=== PATIENT | male | born 1980 | race Two or more races ===

== ENCOUNTER 2017-10-10 00:17 | Emergency (ER) | payer MEDICAID ==
[~2017-10-10] VITALS: Ht 170.2 cm; Wt 81.6 kg
[2017-10-10 00:34] VITALS: BP 129/83
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
[2017-10-10] MEDS ORDERED: Ketorolac 60mg Inj IM ONE (00:45)
[2017-10-10] MEDS ORDERED: HYDROcodone/Acetamin 10/325 tab ORAL ONE (00:45)
[2017-10-10] MEDS ORDERED: ACETAMINOPHEN-1 EAC1 ORAL (01:47)
[2017-10-10] MEDS ORDERED: IBUPROFEN600 MG ORAL (01:47)
[2017-10-10] MEDS ORDERED: PREDNISONE20 MG ORAL (01:47)
[2017-10-10 01:55] VITALS: BP 124/85
[2017-10-10 02:00] VITALS: BP 124/85
== END 2017-10-10 02:00 | disposition home or self-care (01) ==
LOC: EDBD 00:17 → EMR 00:56
DX: M54.9 Dorsalgia, unspecified (principal)
CPT/HCPCS: 96372; 99284

== ENCOUNTER 2017-10-18 10:12 | Emergency (ER) | payer MEDICAID ==
[~2017-10-18] VITALS: Ht 170.2 cm; Wt 81.6 kg
[~2017-10-18 10:12] MED LIST: ACETAMINOPHEN-1 EAC1 ORAL; IBUPROFEN600 MG ORAL; PREDNISONE20 MG ORAL
[2017-10-18 10:24] VITALS: BP 136/76
[2017-10-18] MEDS ORDERED: Ketorolac 60mg Inj IM ONE (11:00)
--- NOTE | 2017-10-18 12:09 | Diagnostic Imaging Report ---
Indication: Pain Technique: 3 views of the lumbar spine Comparison: None Findings: Bony alignment is normal. Vertebral body heights are preserved. The disc spaces are preserved. No acute fractures. No dislocations. Pedicles are intact. Sacral arches are preserved Impression: Negative
--- NOTE | 2017-10-18 12:10 | Emergency Room Report ---
History of Present Illness General Chief Complaint: Lower Back Pain or Injury Source: Patient Present Illness HPI This patient states that he has had chronic back pain. He is followed by his primary care physician in addition to an orthopedist. He has undergone MRI of his back and is found to have multiple disc herniations. He states he has been using Advil, Tylenol and a muscle relaxant without relief. He has had hydrocodone but states he doesn't want to take it because its addictive. He denies new symptoms. He denies weakness. He denies tingling or numbness. He does have an appointment for physical therapy that starts next week. He has no other complaints. Allergies: Coded Allergies: No Known Allergies (Unverified , 10/10/17) Patient History Past Medical History: none, see triage record Past Surgical History: none Social History: Denies: smoking, alcohol use, drug use Reviewed Nursing Documentation: PMH: Agreed; PSxH: Agreed Nursing Documentation-PMH Past Medical History: No Stated History Review of Systems All Other Systems: negative except mentioned in HPI Physical Exam Vital Signs Date Time Temp Pulse Resp B/P (MAP) Pulse Ox O2 Delivery O2 Flow Rate FiO2 10/18/17 10:16 98.4 105 18 136/76 95 Room Air 98.4 Sp02 EP Interpretation: reviewed, normal General Appearance: no apparent distress, alert, GCS 15, non-toxic Head: normocephalic, atraumatic Eyes: bilateral eye normal inspection, bilateral eye PERRL ENT: hearing grossly normal, normal pharynx, no angioedema, normal voice Neck: normal inspection Respiratory: no respiratory distress, no retraction, no accessory muscle use, speaking full sentences Rectal: deferred Musculoskeletal: gait/station normal, normal range of motion Neurologic: alert, oriented x3, responsive, motor strength/tone normal, sensory intact, speech normal Psychiatric: judgement/insight normal, memory normal, mood/affect normal, no suicidal/homicidal ideation Skin: normal color, no rash, warm/dry, well hydrated Medical Decision Making Diagnostic Impression: Primary Impression: Low back pain ER Course This patient has a clinical presentation consistent with mechanical back pain/ chronic back pain. There are no red flags on physical exam. The patient has previously undergone MRI of the lumbar spine. The patient denies any concerning features such as trauma, fevers, night sweats, history of malignancy , pain worse at night, IV drug abuse, urinary/fecal incontinence or retention, focal weakness or change in sensation, or refractory pain. Given these pertinent negatives in the history and physical exam an emergent cause of the back pain such as epidural abscess, metastasis to bone, cauda equina syndrome, and fracture is less likely. I also doubt emergent cardiovascular cause of back pain such as aortic dissection a ruptured abdominal aortic aneurysm given patient with equal pulses in all 4 extremities with no diastolic murmur or pulsatile abdominal mass. The patient was counseled that, though unlikely, the possibility of an emergent cause of back pain may still be present and that the patient should return immediately if symptoms persist or worsen. The symptoms are reproducible with movement. Patient had a benign evaluation and neurologic examination. No emergency etiology was identified. Other X-Ray Diagnostic Results Other X-Ray Diagnostic Results : X-Ray ordered: L-spine # of Views/Limited Vs Complete: Complete Indication: Pain Interpretation: no dislocation, no soft tissue swelling, no fractures Impression: No acute disease Electronically Signed by: Craig Last Vital Signs Date Time Temp Pulse Resp B/P (MAP) Pulse Ox O2 Delivery O2 Flow Rate FiO2 10/18/17 12:04 98.4 10/18/17 10:24 18 136/76 95 Room Air 10/18/17 10:16 105 Disposition: HOME, SELF-CARE Condition: Stable Referrals: [facility]ERR[facility] (PCP) Patient Instructions: Low Back Sprain With Rehab-[facility] Lainey Hurtado DO Oct 18, 2017 12:10
[2017-10-18] MEDS ORDERED: LIDODERM700 M1 TOPIC (12:11)
[2017-10-18 12:26] VITALS: BP 132/77
== END 2017-10-18 12:26 | disposition home or self-care (01) ==
LOC: EMR 10:55
DX: M54.5 Low back pain (principal)
CPT/HCPCS: 72020; 96372; 99283

== ENCOUNTER 2018-03-23 21:10 | Emergency (ER) | payer MEDICAID ==
[~2018-03-23] VITALS: Ht 180.3 cm; Wt 74.8 kg
[~2018-03-23 21:10] MED LIST changes: +LIDODERM700 M1 TOPIC
[2018-03-23 21:24] VITALS: BP 128/85
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
[2018-03-23] MEDS ORDERED: PAXIL20 MG ORAL (21:29)
[2018-03-23] MEDS ORDERED: FLOMAX0.4 MG ORAL (21:29)
[2018-03-23] MEDS ORDERED: NUPLAZID34 MG PO (21:29)
[2018-03-23] MEDS ORDERED: ATORVASTATIN CA20 MG ORAL (21:29)
[2018-03-23] MEDS ORDERED: RISPERDAL1 MG PO (21:29)
[2018-03-23] MEDS ORDERED: NAMENDA5 MG ORAL (21:29)
[2018-03-23] MEDS ORDERED: FINASTERIDE1 MG PO (21:29)
[2018-03-23] MEDS ORDERED: ALLOPURINOL300 M1 ORAL (21:29)
[2018-03-23] MEDS ORDERED: TRAZODONE HCL100 MG ORAL (21:29)
[2018-03-23] MEDS ORDERED: DOCUSATE SODIU100 M2 ORAL (21:29)
[2018-03-23] MEDS ORDERED: DEPAKOTE250 MG PO (21:29)
[2018-03-23] MEDS ORDERED: Norco 5mg/325mg tab ORAL ONE (21:30)
--- NOTE | 2018-03-23 21:35 | NUR ---
ED Nurse Note: CT of Head done.
--- NOTE | 2018-03-23 22:04 | NUR ---
ED Nurse Note: Pain Meds given as ordered.
[2018-03-23 22:40] VITALS: BP 125/81
--- NOTE | 2018-03-24 15:52 | Diagnostic Imaging Report ---
EXAM: XR Chest, 1 View CLINICAL HISTORY: TRAUMA TECHNIQUE: Frontal view of the chest. COMPARISON: No relevant prior studies available. FINDINGS: Lungs: No consolidation. Pleural space: Unremarkable. No pneumothorax. Heart: Unremarkable. No cardiomegaly. Mediastinum: Unremarkable. Bones/joints: No acute fracture. IMPRESSION: No acute cardiopulmonary disease.
--- NOTE | 2018-03-24 15:52 | Diagnostic Imaging Report ---
EXAM: CT Head Without Intravenous Contrast CLINICAL HISTORY: TRAUMA TECHNIQUE: Axial computed tomography images of the head/brain without intravenous contrast. CTDI is 70.38 mGy and DLP is 1347 mGy-cm. One or more of the following dose reduction techniques were used: automated exposure control, adjustment of the mA and/or kV according to patient size, use of iterative reconstruction technique. COMPARISON: No relevant prior studies available. FINDINGS: Brain: No hemorrhage. No edema. Ventricles: No ventriculomegaly. Bones/joints: No acute fracture. Soft tissues: Unremarkable. Sinuses: No acute sinusitis. Mastoid air cells: No mastoid effusion. IMPRESSION: No acute intracranial process.
== END 2018-03-23 22:40 | disposition home or self-care (01) ==
LOC: EDBD 21:10 → EMR 21:31
DX: S09.90XA Unspecified injury of head, initial encounter (principal); S20.219A Contusion of unspecified front wall of thorax, initial encounter; W01.0XXA Fall on same level from slipping, tripping and stumbling without subsequent striking against object, initial encounter; Y92.9 Unspecified place or not applicable; M54.41 Lumbago with sciatica, right side; F10.920 Alcohol use, unspecified with intoxication, uncomplicated
CPT/HCPCS: 70450; 71045; 99284

== ENCOUNTER 2019-10-05 14:22 | Emergency (ER) | payer MEDICAID ==
[~2019-10-05] VITALS: Ht 170.2 cm; Wt 81.6 kg
[~2019-10-05 14:22] MED LIST changes: +ALLOPURINOL300 M1 ORAL; +ATORVASTATIN CA20 MG ORAL; +DEPAKOTE250 MG PO; +DOCUSATE SODIU100 M2 ORAL; +FINASTERIDE1 MG PO; +FLOMAX0.4 MG ORAL; +NAMENDA5 MG ORAL; +NUPLAZID34 MG PO; +PAXIL20 MG ORAL; +RISPERDAL1 MG PO; +TRAZODONE HCL100 MG ORAL
[2019-10-05 14:50] VITALS: BP 126/81
[2019-10-05] MEDS ORDERED: Bacitracin Oint UD TOPIC ONE (15:00)
[2019-10-05] MEDS ORDERED: Lidocaine 1% MPF 10mg/ml 5ml IM ONE (15:00)
[2019-10-05] MEDS ORDERED: Tetanus/Diptheria/Pertussis IM ONE (15:00)
[2019-10-05] MEDS ORDERED: Tylenol #3 tab (300mg/30mg) ORAL ONE (15:00)
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
[2019-10-05] MEDS ORDERED: Lidocaine 2% 20mg/ml/EPI 0.01mg/ml 20ml INJ ONE (15:15)
[2019-10-05] MEDS ORDERED: TYLENOL EXTRA500 MG ORAL (16:17)
[2019-10-05] MEDS ORDERED: BACITRACIN15 GM TOPIC (16:17)
[2019-10-05] MEDS ORDERED: CEPHALEXIN500 MG ORAL (16:17)
[2019-10-05 16:20] VITALS: BP 121/82
[2019-10-05 16:32] VITALS: BP 126/81
== END 2019-10-05 16:25 | disposition home or self-care (01) ==
LOC: EMR 15:00
DX: S61.411A Laceration without foreign body of right hand, initial encounter (principal); Z23 Encounter for immunization; W26.8XXA Contact with other sharp object(s), not elsewhere classified, initial encounter; Y92.9 Unspecified place or not applicable; Z90.81 Acquired absence of spleen
CPT/HCPCS: 12042; 90471; 90715; Z7502; 99283

== ENCOUNTER 2019-10-11 20:38 | Emergency (ER) | payer MEDICAID ==
[~2019-10-11] VITALS: Ht 170.2 cm; Wt 81.6 kg
[~2019-10-11 20:38] MED LIST changes: +BACITRACIN15 GM TOPIC; +CEPHALEXIN500 MG ORAL; +TYLENOL EXTRA500 MG ORAL
[2019-10-11 21:00] VITALS: BP 140/90
--- NOTE | 2019-10-11 21:00 | NUR ---
ED Nurse Note: pt ambulated into ed from home for wound recheck and suture removal. Pt states he has total of 15 stitches on right hand x 7 days ago. Pt states that wound was sutured at [facility] [place] 7 days ago. Pt aao x 4, ambulates with steady gait. Pt states that he has consumed ETOH this evening because he "thought it would help him sleep." pt states that a friend drove him to the ED. ERMD at bedside. Awaiting further orders.
--- NOTE | 2019-10-11 21:10 | NUR ---
ED Nurse Note: pt hand wrapped in lisbeth bandage and splint applied per ERMD. Awaiting further orders.
[2019-10-11] MEDS ORDERED: HYDROcodone/Acetamin 5/325 tab ORAL ONE (21:15)
[2019-10-11] MEDS ORDERED: BACTRIM DS TAB1 EAC1 ORAL (21:16)
[2019-10-11] MEDS ORDERED: NAPROXEN500 M1 ORAL (21:16)
[2019-10-11] MEDS ORDERED: NORCO 5-325 TA1 EAC1 ORAL (21:16)
[2019-10-11] MEDS ORDERED: CLINDAMYCIN HC300 MG ORAL (21:16)
--- NOTE | 2019-10-11 21:20 | NUR ---
ED Nurse Note: all medications administered, pt tolerated well no ss of distress noted. will continue to monitor.
--- NOTE | 2019-10-11 21:25 | Emergency Room Report ---
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 Patient states that on October 05, 2019 he initially received 15 stitches for his hand laceration. He has been compliant with his Keflex. Denies fever, chills, nausea, vomiting, swelling, hand pain, numbness, or paresthesia. Tdap was updated during the last visit. 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 He told the nurse he has still been lifting and doing heavy work at his job. The patient's symptoms were gradual onset, severity was moderate, duration since 6 days. Quality: aching Severity: mild Past medical history: anxiety Past surgical history: denies Smoking: Denies Alcohol use: Denies Drug use: Denies Review of systems: CONST: No fevers or chills, No night sweats PULMONARY: No productive cough, No shortness of breath CARDIAC: No chest pain, No palpitations GI: No vomiting, No diarrhea , No melena_or_BRBPR : No dysuria, No hematuria, No discharge NEURO: No new_focal_weakness_or_numbness, No confusion, No vision changes 14 point Review of Systems is otherwise negative except per HPI Physical Exam: GENERAL: Awake_alert_ nontoxic, no acute distress Spo2 97% on RA -normal EYES: Extraocular muscles are intact. Conjunctivae clear. Lids without swelling ENT: External nose and ear normal_in_appearance. Oropharynx clear. Head_ atraumatic, Moist_oral_mucosa NECK: No JVD. No meningismus. No thyromegaly. Supple. Trachea midline RESP: Normal respiratory effort. Symmetric rise. No stridor. Clear_to_ auscultation_No_rales_No_wheezes CARDIAC: Mild low grade tachcyardia. and regular rhythm on_auscultation No_ significant pedal edema. ABDOMEN: Soft. Nondistended. Nontender_No_rebound_or_guarding. MSK: Normal muscle tone, without rigidity. Extremities without asymmetric deformity or swelling. SKIN: Warm and dry. No visible cyanosis or pallor Upper extremity exam: R hand Sutures x15 visualized. No cellulitis. No surrounding edema. Full range of motion of digits 1 through 5 in flexion and extension at MCP PIP and DIP. Negative kanavals signs. Elbow: No swelling / effusion appreciated, no significant pain with passive range of motion Wrist: No swelling / effusion appreciated, no significant pain with passive range of motion Lateral epicondyle: no tenderness / swelling / ecchymoses Medial epicondyle: no tenderness / swelling / ecchymoses Radial pulse: 2+ Capillary refill: <3 seconds in all fingers All fingers: full range of motion without any tenderness / swelling / deformity / evidence of infection Scaphoid: no tenderness / swelling / ecchymoses, no pain with axial loading of the thumb Radian / Median / Ulnar nerves: all intact (finger opposition, finger adduction / abduction, thumb dorsiflexion) Sensation intact to light touch: in all fingers Strength 5/5 with: wrist dorsi / volar flexion, hand cutter and paster press clippings, elbow flexion / extension NEUROLOGIC: Alert, oriented x3. Motor_and_sensation_grossly_intact. No truncal ataxia. Gait_normal Psych: Normal mood and affect, normal judgment and insight - COORDINATION OF CARE Case was discussed with: Patient Previous ER record reviewed. Medical Decision Making/Plan: Lxioc-gmkv-kxufpzak male presenting for wound check status post right hand laceration repair on October 05, 2019. States he has been compliant with abx. No signs of FTS. No Kanavels sign. No fusiform swelling. No cellulitis or signs of infection. Neuro intact RUE. Intact ROM at MCP PIP DIP joints of R hand. Doubt tendon laceration. Pt found to have low grade tachycardia but is Otherwise is afebrile. States he has mild anxiety associated with getting the stitches removed. He is anxious to get back to work because he needs to make money. 3 sutures were removed, however, this caused a small wound dehiscence that was placed back together successfully with steristrips. Shared medical decision making was performed. Due to dehiscence, will place steristrips to keep wound together for 2 more days pending wound check. Pt educated that the wound still requires 4-5 more days of healing due to the depth of the wound. He was told to stop working with his R hand because it will further delay wound healing. Arm was supported with steristrips, clement bandage and volar splint. Pt educated to be NWB to RUE as this may cause further wound dehiscence/slow down wound healing. Tachycardia resolved after pain control with norco. Will give abx clinda and bactrim as patient is out of keflex. Rx norco and naproxen for pain . Pt advised not to drive or operate heavy machinery while taking norco. Recommend wound check in 2 days. Strict return ER precautions discussed for any new persistent or worsening symptoms Allergies: Coded Allergies: No Known Allergies (Unverified , 06/23/18) COVID-19 Screening Contact w/high risk pt: No Experienced COVID-19 symptoms?: No COVID-19 Testing performed STUNT DOUBLE: No Nursing Documentation-PMH Hx Cardiac Problems: No - sciatica Physical Exam Vital Signs Date Time Temp Pulse Resp B/P (MAP) Pulse Ox O2 Delivery O2 Flow Rate FiO2 10/11/19 20:54 98.1 101 18 140/90 (107) 97 Room Air Sp02 EP Interpretation: reviewed, normal Procedures Splinting Progress Right upper extremity right wrist splint: splint applied to R Wrist Splint applied by tech with direct supervision by me. Reassessed following splint application. Neurovascular intact. Compartments remain soft and compressible. Pt tolerated well without complications. Splint care instructions were discussed. Procedure: R wrist Clement wrap: Clement wrap applied to R wrist Applied by tech with direct supervision by me. Reassessed extremity following splint application. Neurovascular intact pre and post procedure. Follow-up recommended within 1-2 days for wound check Medical Decision Making Diagnostic Impression: Primary Impression: Suture check Additional Impressions: Laceration of hand Encounter for wound re-check Last Vital Signs Date Time Temp Pulse Resp B/P (MAP) Pulse Ox O2 Delivery O2 Flow Rate FiO2 10/11/19 20:54 98.1 101 18 140/90 (107) 97 Room Air Disposition: HOME, SELF-CARE Admit Decision Time: 21:12 Condition: Stable Scripts Naproxen* (NAPROXEN*) 500 Mg Tablet.dr 500 MG ORAL TWICE A DAY for 7 Days, #14 TAB Prov: Fabienne Mills D.O. 10/11/19 Trimethoprim/Sulfamethoxazole 160/800* (BACTRIM DS TABLET*) 1 Each Tablet 1 TAB ORAL Q12H for 7 Days, #14 TAB 0 Refills Prov: Fabienne Mills D.O. 10/11/19 Clindamycin Hcl (CLINDAMYCIN HCL) 300 Mg Capsule 300 MG ORAL THREE TIMES A DAY for 7 Days, #21 CAP Prov: Fabienne Mills D.O. 10/11/19 Hydrocodone Bit/Acetaminophen 5-325* (NORCO 5-325 TABLET*) 1 Each Tablet 1 TAB ORAL Q6H PRN for FOR PAIN, #12 TAB 0 Refills Prov: Fabienne Mills D.O. 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 Sutures still need 4- 5 more days for full wound healing. They will need to but re-evaluated at that time to see if they can come out. Do not drive or operate heavy machinery while taking norco. Follow-up JIM[facility] if you notice any hand swelling, drainage, discharge, difficulty moving your hand or have any fever. Follow-up with your doctor sooner if your condition requires a more timely clinical reevaluation. Return to the emergency department immediately if you feel that your condition is worsening or if you have any new or concerning symptoms. Review your discharge instructions and take any prescriptions given as instructed. Fabienne Mills D.O. Oct 11, 2019 21:25
[2019-10-11 21:40] VITALS: BP 142/85
[2019-10-11 21:42] VITALS: BP 142/85
--- NOTE | 2019-10-11 21:42 | NUR ---
ER DISCHARGE NOTE: Patient is cleared to be discharged home with friend per DI, pt is aox4, 96% on room air, with stable vital signs. pt was given dc and prescription instructions, pt was able to verbalize understanding, pt id band removed. pt is able to ambulate with steady gait. pt took all belongings. pt verbalized understanding of discharge instructions and importance of wound hygiene. Pt aao x 4, ambulates with steady gait. VSS. no ss of distress noted.
== END 2019-10-11 21:42 | disposition home or self-care (01) ==
LOC: EMR 21:06
DX: S61.411A Laceration without foreign body of right hand, initial encounter (principal); T81.30XA Disruption of wound, unspecified, initial encounter; X58.XXXA Exposure to other specified factors, initial encounter; Y92.9 Unspecified place or not applicable; F41.9 Anxiety disorder, unspecified; R00.0 Tachycardia, unspecified
CPT/HCPCS: 29125; Z7502; 99283

== ENCOUNTER 2019-10-19 19:34 | Emergency (ER) | payer MEDICAID ==
[~2019-10-19] VITALS: Ht 170.2 cm; Wt 81.6 kg
[~2019-10-19 19:34] MED LIST changes: +BACTRIM DS TAB1 EAC1 ORAL; +CLINDAMYCIN HC300 MG ORAL; +NAPROXEN500 M1 ORAL; +NORCO 5-325 TA1 EAC1 ORAL
[2019-10-19 19:41] VITALS: BP 132/87
--- NOTE | 2019-10-19 19:41 | NUR ---
ED Nurse Note: Patient walked in to ED for suture removal. Pt states he had sutures placed 2 weeks ago on his R wrist, denies fevers or chills. has finished all of abx. No SOB. VSS.
[2019-10-19] MEDS ORDERED: Bacitracin Oint UD TOPIC ONE ×2 (19:49→20:00)
--- NOTE | 2019-10-19 19:52 | Emergency Room Report ---
History of Present Illness General Chief Complaint: Wound Recheck/Suture Removal Present Illness HPI 39-year-old male with no symptom hospital history here requesting suture removal. Sutures were placed in [facility] about 2 weeks ago. Patient came a week later for wound check and 5 out of 15 sutures were removed however patient started bleeding and was told to come back at a later time. Patient continues to take his oral antibiotics as well as applying antibiotic ointment. Swelling has been minimized. No signs of infection noted at this time. Patient has full range of motion of the hand, denies any tingling numbness. Neurovascularly intact. Has full strength. Allergies: Coded Allergies: No Known Allergies (Unverified , 06/23/18) COVID-19 Screening Contact w/high risk pt: No Experienced COVID-19 symptoms?: No COVID-19 Testing performed SPECIALTY FOODS COOK: No Patient History Past Medical History: see triage record Past Surgical History: none Pertinent Family History: none Immunizations: UTD Reviewed Nursing Documentation: PMH: Agreed; PSxH: Agreed Nursing Documentation-PMH Hx Cardiac Problems: No - sciatica Review of Systems All Other Systems: negative except mentioned in HPI Physical Exam Vital Signs Date Time Temp Pulse Resp B/P (MAP) Pulse Ox O2 Delivery O2 Flow Rate FiO2 10/19/19 19:37 98.6 85 18 132/87 (102) 99 Room Air Sp02 EP Interpretation: reviewed, normal General Appearance: well appearing, no apparent distress Head: normocephalic, atraumatic ENT: hearing grossly normal, normal voice Neck: full range of motion, supple Respiratory: chest non-tender, lungs clear, no rhonchi Cardiovascular #1: no edema, no murmur Cardiovascular #2: 2+ radial (R), 2+ radial (L) Gastrointestinal: soft Genitourinary: no CVA tenderness Musculoskeletal: other - Healed laceration without pus drainage dorsum of right hand Neurologic: alert Psychiatric: mood/affect normal Skin: laceration - Healed laceration dorsum of right hand with 10 sutures present intact Lymphatic: no adenopathy Medical Decision Making PA Attestation All diagnoses and treatment plans were reviewed and discussed with my supervising physician Dr. Bloom Diagnostic Impression: Primary Impression: Encounter for removal of sutures ER Course 39-year-old male with no symptom hospital history here requesting suture removal. Sutures were placed in [facility] about 2 weeks ago. Patient came a week later for wound check and 5 out of 15 sutures were removed however patient started bleeding and was told to come back at a later time. Patient continues to take his oral antibiotics as well as applying antibiotic ointment. Swelling has been minimized. No signs of infection noted at this time. Patient has full range of motion of the hand, denies any tingling numbness. Neurovascularly intact. Has full strength. Ddx considered but are not limited to : Superficial laceration, deep laceration , tendon involvement with laceration, laceration with foreign body Vital signs: are WNL, pt. is afebrile H&PE are most consistent with: Suture removal ORDERS: None patient reports that still has antibiotic ointment at home, bacitracin ED INTERVENTIONS: 10 sutures were removed successfully without any bleeding or pus drainage, will clean and dressed DISCHARGE: At this time pt. is stable for d/c to home. Will provide printed patient care instructions, and any necessary prescriptions. Care plan and follow up instructions have been discussed with the patient prior to discharge. Last Vital Signs Date Time Temp Pulse Resp B/P (MAP) Pulse Ox O2 Delivery O2 Flow Rate FiO2 10/19/19 19:41 98.6 85 18 132/87 99 Room Air Disposition: HOME, SELF-CARE Condition: Stable Patient Instructions: Suture Removal, Care After Mukesh Dooley Oct 19, 2019 19:52
[2019-10-19 19:55] VITALS: BP 133/82
--- NOTE | 2019-10-19 19:55 | NUR ---
ED Nurse Note: Pt cleared by ERPA for discharge. DC instructions was given and explained to pt and verbalized understanding of teachings. All medical deviecs such as ID band removed. Pt is AAO x4, ambulatory and left with all personal belongings.
== END 2019-10-19 19:55 | disposition home or self-care (01) ==
LOC: EMR 19:49
DX: Z48.02 Encounter for removal of sutures (principal)
CPT/HCPCS: 99282

== ENCOUNTER 2020-03-24 01:43 | Emergency (ER) | payer MEDICAID ==
[~2020-03-24] VITALS: Ht 170.2 cm; Wt 81.6 kg
--- NOTE | 2020-03-24 01:56 | NUR ---
ED Nurse Note:Pt walked in from home. Pt is axox4, Vitals are stable on RA, ambulates with a steady gait. pt states that he has been co of n/v/d and abdominal pain since tuesday 03/21. States that his last covid test was negaitve 2 weeks ago. He is tense and restless on assement. He is febrile of 100.7 degrees f
[2020-03-24] MEDS ORDERED: HYDROmorphone 1mg/ml Carpuject IVP ONE ×2 (02:00→02:45)
--- NOTE | 2020-03-24 02:00 | Emergency Room Report ---
History of Present Illness General Chief Complaint: Vomiting Source: Patient, Medical Record Present Illness HPI This is a 40-year-old male with a history of high blood pressure but not currently on medication. He presents with chief complaint abdominal pain and nausea and vomiting. Onset for last 2 to 3 days. Vomiting is nonbloody nonbilious. No diarrhea. No fever or chills. Pain is diffuse in nature. 9 out of 10. Worse with movement. Worse with palpation. Never had this problem before. Said that he was not drinking heavily this weekend. 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 COVID-19 Screening: Negative COVID-19 COVID-19 Testing Source: outside source Patient History Past Medical History: see triage record, old chart reviewed, HTN Past Surgical History: none Pertinent Family History: none Social History: Reports: alcohol use - History of heavy use Immunizations: other Reviewed Nursing Documentation: PMH: Agreed; PSxH: Agreed Nursing Documentation-PMH Hx Cardiac Problems: No - sciatica Review of Systems Eye: Denies: eye pain, blurred vision ENT: Denies: ear pain, nose congestion, throat swelling Respiratory: Denies: cough, shortness of breath Cardiovascular: Denies: chest pain, palpitations Gastrointestinal: Reports: abdominal pain, nausea, vomiting; Denies: diarrhea Musculoskeletal: Denies: back pain, joint pain Skin: Denies: rash Neurological: Denies: headache, numbness Endocrine: Denies: increased thirst, increased urine Hematologic/Lymphatic: Denies: easy bruising All Other Systems: negative except mentioned in HPI Physical Exam Vital Signs Date Time Temp Pulse Resp B/P (MAP) Pulse Ox O2 Delivery O2 Flow Rate FiO2 03/24/20 01:47 100.8 111 18 126/65 (85) 98 Room Air Vitals with fever and tachycardia Sp02 EP Interpretation: reviewed, normal General Appearance: well appearing, no apparent distress, alert Head: normocephalic, atraumatic Eyes: bilateral eye PERRL, bilateral eye EOMI ENT: hearing grossly normal, normal pharynx Neck: full range of motion, supple, no meningismus Respiratory: chest non-tender, lungs clear, normal breath sounds Cardiovascular #1: regular rate, rhythm, no murmur Gastrointestinal: normal bowel sounds, no mass, no organomegaly, no bruit, non- distended, tenderness - Diffuse Musculoskeletal: back normal, normal range of motion, gait/station normal Psychiatric: mood/affect normal Medical Decision Making Diagnostic Impression: Primary Impression: Perforated duodenal ulcer Additional Impressions: Pancreatitis, alcoholic, acute Qualified Codes: K85.20 - Alcohol induced acute pancreatitis without necrosis or infection Hypokalemia Alcohol abuse ER Course This patient presents with abdominal pain and labs show acute pancreatitis. CT scan showed perforated duodenal ulcer and pancreatitis. Patient pain is resolved now. Potassium is also low. I discussed this with him and said that he would need surgery evaluation and probable surgery. He said that he has his father in the car in the parking lot. He said he needs to take his father home and will come back. I explained to him that he will do this he has to sign out AGAINST MEDICAL ADVICE. Explained to him that any delay in care especially surgical consultation, can lead to increased morbidity and mortality. He can from this. Patient expressed understanding. He is competent to sign out AGAINST MEDICAL ADVICE. CT/MRI/US Diagnostic Results CT/MRI/US Diagnostic Results : Imaging Test Ordered: CT abdomen pelvis Impression Read by radiologist. No appendicitis. Perforated duodenum with free air throughout the right abdomen and pelvis. Fatty liver. Calcification throughout the pancreas with atrophy consistent with sequelae of previous pancreatitis. Last Vital Signs Date Time Temp Pulse Resp B/P (MAP) Pulse Ox O2 Delivery O2 Flow Rate FiO2 03/24/20 01:47 100.8 111 18 126/65 (85) 98 Room Air Status: improved Disposition: AGAINST MEDICAL ADVICE Condition: Stable Rodolfo Singh MD Mar 24, 2020 02:00
--- NOTE | 2020-03-24 02:05 | NUR ---
ED Nurse Note: ERMD at bedside
[2020-03-24 02:10] VITALS: BP 126/65
--- NOTE | 2020-03-24 02:10 | NUR ---
ED Nurse Note: all blood work obtained, covid 19 swab obtained sent to lab. all medications administered, pt tolerated well no ss of distress noted. will continue to monitor.
[2020-03-24 02:31] LABS: HEMATOCRIT 51.4 % (42.0-52.0); HEMOGLOBIN 17.8 G/DL (14.2-18.0); MEAN CORPUSCULAR VOLUME 99 FL (80-99); PLATELET COUNT 424 K/UL (150-450); RED BLOOD COUNT 5.18 M/UL (4.70-6.10); RED CELL DISTRIBUTION WIDTH 12.2 % (11.6-14.8)
[2020-03-24 02:39] LABS: WHITE BLOOD COUNT 24.7 K/UL (4.8-10.8)
--- NOTE | 2020-03-24 02:43 | NUR ---
ED Nurse Note: pt returned from CT in stable condition. Pt states he cannot provide a UA at this time. will reassess.
--- NOTE | 2020-03-24 02:45 | NUR ---
ED Nurse Note: all medications administered, pt tolerated well no ss of distress noted. will continue to monitor.
[2020-03-24 02:48] LABS: ALBUMIN 3.5 G/DL (3.4-5.0); BILIRUBIN,TOTAL 1.2 MG/DL (0.2-1.0); CALCIUM 7.9 MG/DL (8.5-10.1); CREATININE 1.8 MG/DL (0.55-1.30)
[2020-03-24 02:53] LABS: POTASSIUM 2.7 MMOL/L (3.5-5.1)
[2020-03-24 02:56] LABS: BILIRUBIN,DIRECT 0.5 MG/DL (0.0-0.3)
--- NOTE | 2020-03-24 03:30 | NUR ---
ED Nurse Note: UA obtained and sent to lab
[2020-03-24 03:40] LABS: APPEARANCE,URINE CLEAR; BILIRUBIN, URINE 1+ (NEGATIVE); COLOR,URINE YELLOW; GLUCOSE, URINE (UA) 1+ (NEGATIVE); KETONES,URINE 1+ (NEGATIVE); LEUKOCYTE ESTERASE ,URINE 1+ (NEGATIVE); NITRITE,URINE NEGATIVE (NEGATIVE); PH,URINE 7 (4.5-8.0); PROTEIN,URINE 3+ (NEGATIVE); UROBILINOGEN,URINE 1 MG/DL (0.0-1.0)
--- NOTE | 2020-03-24 03:42 | Diagnostic Imaging Report ---
EXAM: CT Abdomen and Pelvis Without Intravenous Contrast CLINICAL HISTORY: ABD PAIN TECHNIQUE: Axial computed tomography images of the abdomen and pelvis without intravenous contrast. CTDI is 5.80 mGy and DLP is 326.10 mGy-cm. One or more of the following dose reduction techniques were used: automated exposure control, adjustment of the mA and/or kV according to patient size, use of iterative reconstruction technique. COMPARISON: No relevant prior studies available. FINDINGS: Lung bases: Atelectasis at the lung bases. Mild hiatal hernia. ABDOMEN: Liver: Hepatic steatosis. Gallbladder and bile ducts: Unremarkable. No calcified stones. No ductal dilation. Pancreas: Calcifications throughout the pancreas with atrophy, consistent with sequelae of previous pancreatitis. No ductal dilation. Spleen: Unremarkable. No splenomegaly. Adrenals: Unremarkable. No mass. Kidneys and ureters: Unremarkable. No obstructing stones. No hydronephrosis. Stomach and bowel: Diverticulosis, without acute diverticulitis. No small bowel obstruction. PELVIS: Appendix: No findings to suggest acute appendicitis. Bladder: Circumferential wall thickening of the urinary bladder, correlate with urinalysis to exclude cystitis. No stones. Reproductive: Unremarkable as visualized. ABDOMEN and PELVIS: Intraperitoneal space: Perforated duodenum consisting of numerous locules of free air adjacent to the duodenum with associated free fluid throughout the right abdomen and pelvis, including the region adjacent to the pancreatic head, right retroperitoneum, right paracolic gutter, and right pelvis. Evaluation is limited without intravenous/oral contrast. Note, there may be residual oral contrast in the colon from an old study. Bones/joints: No acute fracture. No dislocation. Soft tissues: Small fat-containing right inguinal hernia. Vasculature: Unremarkable. No abdominal aortic aneurysm. Lymph nodes: Unremarkable. No enlarged lymph nodes. IMPRESSION: 1. Perforated duodenum consisting of numerous locules of free air adjacent to the duodenum with associated free fluid throughout the right abdomen and pelvis, including the region adjacent to the pancreatic head, right retroperitoneum, right paracolic gutter, and right pelvis. Evaluation is limited without intravenous/oral contrast. Note, there may be residual oral contrast in the colon from an old study. Consider follow-up with water-soluble fluoroscopic evaluation. 2. Hepatic steatosis. 3. Calcifications throughout the pancreas with atrophy, consistent with sequelae of previous pancreatitis. 4. Circumferential wall thickening of the urinary bladder, correlate with urinalysis to exclude cystitis. <MYCVCSECTION> Communications: 03/24/20 03:47 Call Doctor Regarding Other, called Rodolfo Singh MD on 03/24 03:47 (-08:00)
--- NOTE | 2020-03-24 03:49 | NUR ---
ED Nurse Note: ERMD at bedside
[2020-03-24 03:54] VITALS: BP 139/73
--- NOTE | 2020-03-24 03:54 | NUR ---
AMA: pt aao x 4, ambulates with steady gait, VSS. Pt AMA and informed of risks and concerns per ERMD regarding leaving AMA. AMA form signed. IV line and ID band removed. Pt took all belongings. SEE AMA FORM.
== END 2020-03-24 03:54 | disposition left against medical advice (07) ==
LOC: EMR 02:00 → EDBEDREQ 04:00
DX: K26.5 Chronic or unspecified duodenal ulcer with perforation (principal); K85.20 Alcohol induced acute pancreatitis without necrosis or infection; E87.6 Hypokalemia; F10.10 Alcohol abuse, uncomplicated; Z53.29 Procedure and treatment not carried out because of patient's decision for other reasons
CPT/HCPCS: 36415; 74176; 80053; 81003; 82248; 83690; 85007; 85025; 87086; 96361; 96374; 96375; 96376; J1170; J2405; J7030; U0002; Z7502; 99284; J8499

== ENCOUNTER 2020-03-24 07:29 | Inpatient (IN) | payer MEDICAID ==
[~2020-03-24] VITALS: Ht 170.2 cm; Wt 81.6 kg
[2020-03-24] VITALS (21 sets, daily range): BP systolic 119–143; BP diastolic 66–89
[2020-03-24] MEDS ORDERED: Morphine Sulfate 4mg/ml Inj (IV USE ONLY) IVP ONE (08:00)
[2020-03-24] MEDS ORDERED: Piperacillin/Tazobactam 3.375 GM in NS 110 ML IVPB ONE (08:00)
[2020-03-24 08:17] LABS: HEMOGLOBIN 17.5 G/DL (14.2-18.0); MEAN CORPUSCULAR VOLUME 101 FL (80-99); PLATELET COUNT 413 K/UL (150-450); RED BLOOD COUNT 5.13 M/UL (4.70-6.10); RED CELL DISTRIBUTION WIDTH 13.4 % (11.6-14.8)
[2020-03-24 08:20] LABS: WHITE BLOOD COUNT 29.8 K/UL (4.8-10.8)
--- NOTE | 2020-03-24 08:31 | NUR ---
ED Nurse Note:pt. came from home with abdominal pain and nausea, pt. is ambulatory A/Ox4, skin is intact, VSS, blood and cultures sent to labs, given IV meds and fluids
[2020-03-24 08:44] LABS: ALBUMIN 3.1 G/DL (3.4-5.0); ALBUMIN/GLOBULIN RATIO 0.8 (1.0-2.7); BILIRUBIN,TOTAL 1.1 MG/DL (0.2-1.0); CALCIUM 7.7 MG/DL (8.5-10.1); POTASSIUM 2.8 MMOL/L (3.5-5.1)
[2020-03-24 08:54] LABS: BILIRUBIN,DIRECT 0.4 MG/DL (0.0-0.3); INR 1.2 (0.9-1.1)
--- NOTE | 2020-03-24 08:57 | Emergency Room Report ---
History of Present Illness General Chief Complaint: Abdominal Pain Source: Patient, Medical Record Present Illness HPI 40-year-old male presents for abdominal pain. Was seen here earlier last night. Had CT which showed perforated duodenal ulcer. Patient did leave AMA because he had to take care of his father. Patient returned because of the pain. 10 out of 10, dull, nonradiating. Denies fevers or chills. Denies chest pain or shortness of breath. No other aggravating relieving factors. Denies any other associated symptoms Allergies: Coded Allergies: No Known Allergies (Unverified , 06/23/18) COVID-19 Screening Contact w/high risk pt: No Experienced COVID-19 symptoms?: Yes COVID-19 Testing performed LOSS PREVENTION AND SAFETY MANAGER: No Patient History Past Surgical History: none Pertinent Family History: none Social History: Denies: smoking, alcohol use, drug use Immunizations: UTD Reviewed Nursing Documentation: PMH: Agreed; PSxH: Agreed Nursing Documentation-PMH Past Medical History: No History, Except For Hx Cardiac Problems: No - sciatica Hx Hypertension: No Hx Pacemaker: No Hx Asthma: No Hx COPD: No Hx Diabetes: No Hx Cancer: No Hx Gastrointestinal Problems: No Hx Dialysis: No History Of Psychiatric Problem: No Hx Neurological Problems: No Hx Cerebrovascular Accident: No Hx Seizures: No Review of Systems All Other Systems: negative except mentioned in HPI Physical Exam Vital Signs Date Time Temp Pulse Resp B/P (MAP) Pulse Ox O2 Delivery O2 Flow Rate FiO2 03/24/20 07:40 98.8 118 20 119/66 (83) 94 Room Air Sp02 EP Interpretation: reviewed, normal General Appearance: alert, GCS 15, non-toxic, mild distress Head: normocephalic, atraumatic Eyes: bilateral eye normal inspection, bilateral eye PERRL ENT: hearing grossly normal, normal pharynx, no angioedema, normal voice Neck: full range of motion, supple/symm/no masses Respiratory: chest non-tender, lungs clear, normal breath sounds, speaking full sentences Cardiovascular #1: regular rate, rhythm, no edema Cardiovascular #2: 2+ carotid (R), 2+ carotid (L), 2+ radial (R), 2+ radial (L), 2+ dorsalis pedis (R), 2+ dorsalis pedis (L) Gastrointestinal: normal bowel sounds, non tender, soft, non-distended, guarding Rectal: deferred Genitourinary: normal inspection, no CVA tenderness Musculoskeletal: back normal, normal range of motion, gait/station normal, non-tender Neurologic: alert, motor strength/tone normal, oriented x3, sensory intact, responsive, speech normal Psychiatric: judgement/insight normal, memory normal, mood/affect normal, no suicidal/homicidal ideation Reflexes: 3+ bicep (R), 3+ bicep (L), 3+ tricep (R), 3+ tricep (L), 3+ knee (R), 3+ knee (L) Skin: no rash Lymphatic: no adenopathy Procedures Critical Care Time Critical Care Time i. I feel this is a highly complex case requiring extensive working including EKG/Rhythm strip, Xray/CT/US, Blood/urine lab work, repeat exams while in ED, and administration of strong opiates/narcotics for pain control, admission to hospital or close patient follow up. Total time: 30 min bedside evaluation and treatment excludes procedures (EKG). Reason for critical care: Nominal pain, perforated duodenal ulcer Possible complications: hypotension, hypertension, GA, shock, arrhythmias, metabolic acidosis, end organ damage, respiratory failure. Interventions: Labs, IV fluids, antibiotics, review of prior chart and imaging. Discussion with surgeon Course: Patient presenting with abdominal pain. Seen earlier today with perforated ulcer. Left AMA. White count increased. Guarding. Surgeon consulted. Antibiotics given. NPO. Consultations: nursing staff, EMS, family Performed by: Dr Escobar Tolerated well condition = serious j. because of unstable vital signs this patient had a condition that could potentially threaten life or limb. I feel this is a critical patient who required my full attention while patient was considered critical. Total Critical Care Time excluding procedures was greater than 35 minutes Medical Decision Making Diagnostic Impression: Primary Impression: Perforated duodenal ulcer Additional Impression: Pancreatitis, alcoholic, acute Qualified Codes: K85.20 - Alcohol induced acute pancreatitis without necrosis or infection ER Course Hospital Course 40-year-old male presents with abdominal pain. Left AMA earlier today. Had perforated duodenal ulcer Clinical course Patient placed on stretcher. lunchroom monitor. After initial history and physical I ordered labs, IV fluids, UA, pain medication Labs - marked leukocytosis noted, Hb/Hct stable. BUN/Cr elevated, K 2.8, lipase > [address] Staton at bedside will take patient to the OR Admitted to Dr. Forbes service I feel this is a highly complex case requiring extensive working including EKG/Rhythm strip, Xray/CT/US, Blood/urine lab work, repeat exams while in ED, and administration of strong opiates/narcotics for pain control, admission to hospital or close patient follow up. Diagnosis -perforated duodenal ulcer, pancreatitis Patient taken to OR in serious condition Laboratory Tests Test 03/24/20 08:00 03/24/20 08:35 White Blood Count 29.8 K/UL (4.8-10.8) *H Red Blood Count 5.13 M/UL (4.70-6.10) Hemoglobin 17.5 G/DL (14.2-18.0) Hematocrit 52.0 % (42.0-52.0) Mean Corpuscular Volume 101 FL (80-99) H Mean Corpuscular Hemoglobin 34.0 PG (27.0-31.0) H Mean Corpuscular Hemoglobin Concent 33.6 G/DL (32.0-36.0) Red Cell Distribution Width 13.4 % (11.6-14.8) Platelet Count 413 K/UL (150-450) Mean Platelet Volume 6.7 FL (6.5-10.1) Neutrophils (%) (Auto) % (45.0-75.0) Lymphocytes (%) (Auto) % (20.0-45.0) Monocytes (%) (Auto) % (1.0-10.0) Eosinophils (%) (Auto) % (0.0-3.0) Basophils (%) (Auto) % (0.0-2.0) Neutrophils % (Manual) Pending Lymphocytes % (Manual) Pending Platelet Estimate Pending Platelet Morphology Pending Prothrombin Time 12.7 SEC (9.30-11.50) H Prothromb Time International Ratio 1.2 (0.9-1.1) H Activated Partial Thromboplast Time 26 SEC (23-33) Sodium Level 130 MMOL/L (136-145) L Potassium Level 2.8 MMOL/L (3.5-5.1) L Chloride Level 84 MMOL/L (98-107) L Carbon Dioxide Level 36 MMOL/L (21-32) H Anion Gap 9 mmol/L (5-15) Blood Urea Nitrogen 23 mg/dL (7-18) H Creatinine 2.0 MG/DL (0.55-1.30) H Estimat Glomerular Filtration Rate 36.8 mL/min (>60) Glucose Level 249 MG/DL (74-106) H Calcium Level 7.7 MG/DL (8.5-10.1) L Total Bilirubin 1.1 MG/DL (0.2-1.0) H Direct Bilirubin 0.4 MG/DL (0.0-0.3) H Aspartate Amino Transf (AST/SGOT) 32 U/L (15-37) Alanine Aminotransferase (ALT/SGPT) 26 U/L (12-78) Alkaline Phosphatase 94 U/L (46-116) Total Protein 6.8 G/DL (6.4-8.2) Albumin 3.1 G/DL (3.4-5.0) L Globulin 3.7 g/dL Albumin/Globulin Ratio 0.8 (1.0-2.7) L Lipase 900 U/L (73-393) H Lactic Acid Level Pending Last Vital Signs Date Time Temp Pulse Resp B/P (MAP) Pulse Ox O2 Delivery O2 Flow Rate FiO2 03/24/20 08:28 98.8 107 20 119/66 98 Room Air Status: improved Disposition: ADMITTED INPATIENT Condition: Serious Referrals: NON PHYSICIAN (PCP) David Escobar MD Mar 24, 2020 08:57
[2020-03-24] MEDS ORDERED: NeoSporin Gu Irrig 1ml Amp IRRIG ONE (10:03)
[2020-03-24] MEDS ORDERED: Bacitracin 50000 Units Vial ONE (10:03)
[2020-03-24] MEDS ORDERED: Rocuronium Bromide 50mg/5ml Inj IV ONE (10:03)
[2020-03-24] MEDS ORDERED: Succinylcholine 20mg/ml 10ml vial ONE (10:03)
--- NOTE | 2020-03-24 10:06 | NUR ---
ED Nurse Note:pre-op check list done, pt. was picked up by OR staff for surgery
[2020-03-24] MEDS ORDERED: fentaNYL 100 mcg/2 mL IV ONE (10:30)
[2020-03-24] MEDS ORDERED: Midazolam 2mg/2ml Inj ONE (10:30)
[2020-03-24] MEDS ORDERED: Lidocaine 1% MPF 10mg/ml 5ml ONE (10:39)
--- NOTE | 2020-03-24 10:42 | Pre-Procedure Note/Attestation ---
Pre-Procedure Note/Attestation Complete Prior to Procedure Planned Procedure: not applicable Procedure Narrative: exploratory laparotomy Indications for Procedure Pre-Operative Diagnosis: acute abdomen Attestation I attest that I discussed the nature of the procedure; its benefits; risks and complications; and alternatives (and the risks and benefits of such alternatives), prior to the procedure, with the patient (or the patient's legal insurance account representative). I attest that, if there was a reasonable possibility of needing a blood transfusion, the patient (or the patient's legal insurance account representative) was given the [facility] standardized written summary, pursuant to the Bob Amberg Blood Safety Act ([place] Health and Safety Code # 1645, as amended). I attest that I re-evaluated the patient just prior to the surgery and that there has been no change in the patient's H&P, except as documented below: Desiree Staton MD Mar 24, 2020 10:42
[2020-03-24] MEDS ORDERED: Neostigmine 1mg/ml 10ml Inj ONE (11:00)
[2020-03-24] MEDS ORDERED: Sterile Water Irrig 1000ml IRRIG ONE (11:00)
[2020-03-24] MEDS ORDERED: NS Irrig 3000ml IRRIG ONE (11:00)
[2020-03-24] MEDS ORDERED: LR 1000ml ONE (11:00)
[2020-03-24] MEDS ORDERED: Glycopyrrolate 0.2mg/ml 1ml Vial ONE (11:26)
[2020-03-24] MEDS ORDERED: Sodium Chloride 10ml vial INJ ONE (11:26)
[2020-03-24] MEDS ORDERED: Morphine Sulfate 10mg/ml Inj ONE (11:26)
[2020-03-24] MEDS ORDERED: Acetaminophen (Non formulary) 100 ML IV ONE (11:30)
--- NOTE | 2020-03-24 11:37 | Anethesia Preoperative Eval ---
Anesthesia Pre-op PMH/ROS General Date of Evaluation: Mar 24, 2020 Time of Evaluation: 10:44 Anesthesiologist: Yassine ASA Score: ASA 2 Mallampati Score Class I : Soft palate, uvula, fauces, pillars visible Class II: Soft palate, uvula, fauces visible Class III: Soft palate, base of uvula visible Class IV: Only hard plate visible Mallampati Classification: Class II Surgeon: Brionna Diagnosis: Perforated bowel Surgical Procedure: Ex laparotomy Anesthesia History: none Family History: no anesthesia problems Allergies: Coded Allergies: No Known Allergies (Unverified , 06/23/18) Medications: see eMAR Patient NPO?: Yes Past Medical History Cardiovascular: Denies: HTN, CAD, [place], valve dz, arrhythmia, other Pulmonary: Denies: asthma, COPD, [place], other Gastrointestinal/Genitourinary: Reports: GERD; Denies: CRI, ESRD, other Neurologic/Psychiatric: Denies: dementia, CVA, depression/anxiety, TIA, other Endocrine: Denies: DM, hypothyroidism, steroids, other HEENT: Denies: cataract (L), cataract (R), glaucoma, NENANA (L), NENANA (R), other Hematology/Immune: Denies: anemia, DVT, bleeding disorder, other Musculoskeletal/Integumentary: Denies: OA, RA, DJD, DDD, edema, other PMH Narrative: Admitted for acute abdominal pain vomiting for 3 days, perforated duodenal ulcer on CT scan PSxH Narrative: Ex lap splenectomy Anesthesia Pre-op Phys. Exam Physician Exam Last Vital Signs Date Time Temp Pulse Resp B/P (MAP) Pulse Ox O2 Delivery O2 Flow Rate FiO2 03/24/20 10:18 98.8 105 19 124/68 98 Room Air Constitutional: other - severe abdominal pain Neurologic: CN 2-12 intact Cardiovascular: RRR, no M/R/G Respiratory: CTA Gastrointestinal: other - tender on palpation Airway Exam Mallampati Score: Class II MO: limited Neck: stiff ROM: limited Teeth: missing Dentures: no upper, no lower Anesthesia Pre-op A/P Labs Hematology Test 03/24/20 08:00 White Blood Count 29.8 K/UL (4.8-10.8) *H Red Blood Count 5.13 M/UL (4.70-6.10) Hemoglobin 17.5 G/DL (14.2-18.0) Hematocrit 52.0 % (42.0-52.0) Mean Corpuscular Volume 101 FL (80-99) H Mean Corpuscular Hemoglobin 34.0 PG (27.0-31.0) H Mean Corpuscular Hemoglobin Concent 33.6 G/DL (32.0-36.0) Red Cell Distribution Width 13.4 % (11.6-14.8) Platelet Count 413 K/UL (150-450) Mean Platelet Volume 6.7 FL (6.5-10.1) Neutrophils (%) (Auto) % (45.0-75.0) Lymphocytes (%) (Auto) % (20.0-45.0) Monocytes (%) (Auto) % (1.0-10.0) Eosinophils (%) (Auto) % (0.0-3.0) Basophils (%) (Auto) % (0.0-2.0) Differential Total Cells Counted 100 Neutrophils % (Manual) 72 % (45-75) Lymphocytes % (Manual) 8 % (20-45) L Monocytes % (Manual) 3 % (1-10) Eosinophils % (Manual) 0 % (0-3) Basophils % (Manual) 0 % (0-2) Band Neutrophils 17 % (0-8) H Platelet Estimate Adequate Platelet Morphology Normal Red Blood Cell Morphology Normal Coagulation Test 03/24/20 08:00 Prothrombin Time 12.7 SEC (9.30-11.50) H Prothromb Time International Ratio 1.2 (0.9-1.1) H Activated Partial Thromboplast Time 26 SEC (23-33) Chemistry Test 03/24/20 08:00 03/24/20 08:35 Sodium Level 130 MMOL/L (136-145) L Potassium Level 2.8 MMOL/L (3.5-5.1) L Chloride Level 84 MMOL/L (98-107) L Carbon Dioxide Level 36 MMOL/L (21-32) H Anion Gap 9 mmol/L (5-15) Blood Urea Nitrogen 23 mg/dL (7-18) H Creatinine 2.0 MG/DL (0.55-1.30) H Estimat Glomerular Filtration Rate 36.8 mL/min (>60) Glucose Level 249 MG/DL (74-106) H Calcium Level 7.7 MG/DL (8.5-10.1) L Total Bilirubin 1.1 MG/DL (0.2-1.0) H Direct Bilirubin 0.4 MG/DL (0.0-0.3) H Aspartate Amino Transf (AST/SGOT) 32 U/L (15-37) Alanine Aminotransferase (ALT/SGPT) 26 U/L (12-78) Alkaline Phosphatase 94 U/L (46-116) Total Protein 6.8 G/DL (6.4-8.2) Albumin 3.1 G/DL (3.4-5.0) L Globulin 3.7 g/dL Albumin/Globulin Ratio 0.8 (1.0-2.7) L Lipase 900 U/L (73-393) H Lactic Acid Level 3.10 mmol/L (0.4-2.0) H Risk Assessment & Plan Assessment: ASA 2E Plan: Ga with ETT Status Change Before Surgery: No Pre-Antibiotics Drug: Metronidazol 500mg Given Within 1 Hr of Incision: Yes Time Given: 11:10 García Metzger MD Mar 24, 2020 11:37
[2020-03-24] MEDS ORDERED: Hydromorphone 0.5mg/0.5ml inj IVP PRN ×5 (11:45→13:45)
[2020-03-24] MEDS ORDERED: DiphenhydrAMINE 50mg/ml Inj IVP PRN ×3 (11:45→13:15)
[2020-03-24] MEDS ORDERED: LR 1000ml 1,000 ML IVLG SCH ×2 (11:45→12:00)
[2020-03-24] MEDS ORDERED: Ketorolac 30mg Inj IV PRN ×3 (11:45→13:15)
[2020-03-24] MEDS ORDERED: Meperidine 25mg/1ml Inj (FOR RIGORS ONLY) IV PRN ×4 (11:45→13:15)
--- NOTE | 2020-03-24 12:13 | Brief Operative Note ---
Immediate Post Operative Note Operative Note Pre-op Diagnosis: acute abdomen Procedure: ex lap lysis of adhesions & partial omentectomy Post-op Diagnosis: same as pre-op Surgeon: dayana bearden Radiology Clerk: none Anesthesiologist: Dr. Aleman Anesthesia: general Specimen: yes Complications: none Condition: stable Fluids: per anesthesiologist Estimated Blood Loss: volume - 20 ml Drains: other - david Implant(s) used?: No Desiree Bearden MD Mar 24, 2020 12:13
[2020-03-24] MEDS ORDERED: Metoclopramide 10mg/2ml Inj IVP PRN (12:15)
[2020-03-24] MEDS ORDERED: Acetaminophen 650 MG SUPP RECTAL PRN (12:15)
[2020-03-24] MEDS ORDERED: HYDROmorphone 1mg/ml Carpuject IVP PRN (12:15)
--- NOTE | 2020-03-24 12:31 | Immediate Post-Op Evaluation ---
Immediate Post-Op Evalulation Immediate Post-Op Evalulation Procedure: Exploratory laparotomy lysis of adhesions Date of Evaluation: Mar 24, 2020 Time of Evaluation: 12:29 IV Fluids: 1000 Blood Products: none Estimated Blood Loss: 50 Urinary Output: 70 Blood Pressure Systolic: 134 Blood Pressure Diastolic: 76 Pulse Rate: 102 Respiratory Rate: 22 O2 Sat by Pulse Oximetry: 98 Temperature (Fahrenheit): 97.6 Pain Score (1-10): 2 Nausea: No Vomiting: No Complications none Patient Status: reacts, patent, extubated, none Hydration Status: adequate García Metzger MD Mar 24, 2020 12:31
[2020-03-24] MEDS ORDERED: Meperidine 25mg/1ml Inj (FOR RIGORS ONLY) ONE (13:00)
[2020-03-24] MEDS ORDERED: Hydromorphone 0.5mg/0.5ml inj ONE ×2 (13:15→13:46)
[2020-03-24] MEDS ORDERED: DiphenhydrAMINE 50mg/ml Inj ONE (13:48)
[2020-03-24] MEDS ORDERED: Ketorolac 30mg Inj ONE (13:58)
--- NOTE | 2020-03-24 14:25 | NUR ---
NURSE NOTES: PATIENT RECEIVED FROM PACU ON BED IN SUPINE POSITION. AROUSABLE TO NAME. NOTED RIGHT NARE NGT CONNECT LCS. O2 ON VIA NC. RR EVEN UNLABORED. SKIN W/D. ABDOMINAL SURGICAL SITE C/D/I W/ ROLANDO DRAIN TO SUCTION. SS OUTPUT NOTED. SWEET CATHETER PATENT AND SECURED TO LEFT THIGH.QUESTIONS ANSWERED, NEEDS MET AT THIS TIME. DISCUSSED PLAN OF CARE FOR THE DAY. VERBALIZED UNDERSTANDING. BEDSIDE REPORT RECEIVED. BED IN LOW AND LOCKED POSITION. CALL LIGHT WITHIN REACH. WILL CONTINUE TO ASSESS.
[2020-03-24] MEDS ORDERED: D5 1/2NS w/KCl 20mEq 1,000 ML IV SCH (15:00)
--- NOTE | 2020-03-24 15:09 | Consultation ---
Consult Note Consult Note I am asked to evaluate the patient at the request of Dr. Forbes for renal failure Patient postop for perforated duodenal ulcer Initially left the ER AMA! Emergency room note: Chief Complaint: Abdominal Pain 40-year-old male presents for abdominal pain. Was seen here earlier last night. Had CT which showed perforated duodenal ulcer. Patient did leave AMA because he had to take care of his father. Patient returned because of the pain. 10 out of 10, dull, nonradiating. Denies fevers or chills. Denies chest pain or shortness of breath. No other aggravating relieving factors. Denies any other associated symptoms Allergies: No Known Allergies (Unverified , 06/23/18) COVID-19 Screening Contact w/high risk pt: No Experienced COVID-19 symptoms?: Yes COVID-19 Testing performed VOICE STUDIES DIRECTOR: No Past Medical History: No History, Except For Hx Cardiac Problems: No - sciatica Vital Signs Date Time Temp Pulse Resp B/P (MAP) Pulse Ox O2 Delivery O2 Flow Rate FiO2 03/24/20 07:40 98.8 118 20 119/66 (83) 94 Room Air Assessment/Plan Acute renal failure Dehydration Electrolyte imbalance Perforated duodenal ulcer Elevated lipase Postop IV fluid IV Protonix Keep the blood sugar in check Monitor electrolytes and renal parameters Keep the blood pressure in check Monitor lipase Urine for tox screen Randy Monge MD Mar 24, 2020 15:09
--- NOTE | 2020-03-24 15:29 | History and Physical Report ---
DATE OF ADMISSION: 03/24/2020 TIME: 1 p.m. CONSULTANTS: Desiree Staton M.D. and Shravan Marques M.D. CHIEF COMPLAINT: Abdominal pain, perforated duodenal, and pancreatitis. BRIEF HISTORY: The patient is a 40-year-old male who presents with 2 days of increased abdominal pain, slight nausea, vomiting, came to [place], diagnosed with perforated duodenum, pancreatitis, and was being admitted, went to the OR with Dr. Staton, currently lethargic in bed, sedated, not talking much. REVIEW OF SYSTEMS: Unavailable. PAST MEDICAL HISTORY: Pancreatitis, perforated duodenum, back pain, alcohol abuse. PAST SURGICAL HISTORY: Unknown. ALLERGIES: Denies. SOCIAL HISTORY: Unable to obtain secondary to the patient's condition. No chest pain. Lethargic in bed, not talking much. PHYSICAL EXAMINATION: VITAL SIGNS: Temperature is 99, pulse 101, respirations 16, blood pressure 120/76. CARDIOVASCULAR: . ABDOMEN: Bowel sounds distant. Soft. No guarding. No rigidity. No rebound. EXTREMITIES: No cyanosis or edema. NEUROLOGIC: The patient is flaccid in bed, not really following directions. LABORATORY AND DIAGNOSTIC DATA: White count 29; otherwise, CBC is normal. Sodium 130, potassium 3.8, chloride 84. BUN and creatinine are 23 and 2.0. INR is 1.2. MEDICATIONS: Enoxaparin, Zosyn, meperidine, ketorolac, hydromorphone, Reglan, Zofran. ASSESSMENT: Perforated duodenum, pancreatitis, renal failure, abdominal pain. PLAN: IV fluids. Antibiotics per Infectious Disease. GI surgery followup. Nephrology followup. We will check CBC and BMP in the morning. Nacho Forbes D.O. DR: AMANDA JOB#: [id number] CC:
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
--- NOTE | 2020-03-24 17:43 | NUR ---
NURSE NOTES: PATIENT REMAINS STABLE. VSS. AFEBRILE. SURGICAL SITE C/D/I. PAIN CONTROLLED. BED IN LOW AND LOCKED POSITION. CALL LIGHT WITHIN REACH.
[2020-03-24] MEDS: NovoLOG Insulin Flexpen SUBQ SCH (18:00)
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
--- NOTE | 2020-03-24 19:15 | NUR ---
NURSE NOTES: Received report from KATTY Velasquez. Pt is currently awake, VSS, bed locked and in lowest position, call light within reach, renteria patent and draining. Left AC IVF infusing well. Will continue to monitor.
--- NOTE | 2020-03-24 19:19 | NUR ---
NURSE HAND-OFF: Important Events on Shift: POSITIVE FOR OPIATES AND BENZODIAZEPINES VIA URINE TOX SCREEN Patient Status: STABLE Diet: STRICT NPO Pending Orders: N/A Pending Results/Labs: N/A Pending MD notification:N/A Latest Vital Signs: Temperature 97.9 , Pulse 102 , B/P 120 /82 , Respiratory Rate 18 , O2 SAT 98 , Nasal Cannula, O2 Flow Rate 3 . Vital Sign Comment: STABLE Latest Ramirez Fall Score: 35 Fall Risk: Medium Risk Safety Measures: Call light Within Reach, Bed Alarm , Side Rails Side Rails x2, Bed position Low and Locked. Fall Precautions: Door Sign Patient Fall Education Report given to RAMIRO SHERIDAN RN.
[2020-03-24] MEDS: Pantoprazole Inj IVP SCH (21:21)
[2020-03-24] MEDS: Piperacillin/Tazobactam 3.375 GM in NS 110 ML IVPB SCH (21:22)
[2020-03-25] VITALS: BP 130/83
[2020-03-25] MEDS: NovoLOG Insulin Flexpen SUBQ SCH ×3 (06:00→12:00)
[2020-03-25] MEDS: Piperacillin/Tazobactam 3.375 GM in NS 110 ML IVPB SCH (06:11)
--- NOTE | 2020-03-25 07:15 | NUR ---
NURSE HAND-OFF: Important Events on Shift: Pt was able to ambulate with RN assist Patient Status: calm Diet: NPO Pending Orders: Pending Results/Labs: Pending MD notification: Latest Vital Signs: Temperature 99.1 , Pulse 104 , B/P 130 /83 , Respiratory Rate 18 , O2 SAT 96 , Nasal Cannula, O2 Flow Rate 3.0 . Vital Sign Comment: VSS Latest Ramirez Fall Score: 35 Fall Risk: Medium Risk Safety Measures: Call light Within Reach, Bed Alarm Zone 1, Side Rails Side Rails x2, Bed position Low and Locked. Fall Precautions: Yellow Socks Door Sign Patient Fall Education Report given to KATTY Ardon.
--- NOTE | 2020-03-25 07:31 | 48 Hour Post Anesthesia Eval ---
Post Anesthesia Evaluation Procedure: Exploratory laparotomy lysis of adhesions Date of Evaluation: Mar 25, 2020 Time of Evaluation: 07:29 Blood Pressure Systolic: 128 0: 76 Pulse Rate: 84 Respiratory Rate: 22 Temperature (Fahrenheit): 97.8 O2 Sat by Pulse Oximetry: 98 Airway: patent Nausea: No Vomiting: No Pain Intensity: 3 Hydration Status: adequate Cardiopulmonary Status: stable Mental Status/LOC: patient returned to baseline Follow-up Care/Observations: n/a Post-Anesthesia Complications: none Follow-up care needed: N/A García Metzger MD Mar 25, 2020 07:30
[2020-03-25 07:58] LABS: HEMATOCRIT 45.8 % (42.0-52.0); MEAN CORPUSCULAR VOLUME 102 FL (80-99); PLATELET COUNT 427 K/UL (150-450); RED BLOOD COUNT 4.48 M/UL (4.70-6.10); RED CELL DISTRIBUTION WIDTH 14.2 % (11.6-14.8); WHITE BLOOD COUNT 21.5 K/UL (4.8-10.8)
[2020-03-25 08:00] VITALS: BP 140/90
--- NOTE | 2020-03-25 08:00 | NUR ---
NURSE NOTES: Received report from Jamal ALANIZ. Patient is awake and oriented, in no distress, right nare NGT in place to low intermittent suction per order, 61cm at the nare. IV running antibiotic per order. Patient is requesting water, patient educated on strict NPO status. Updated on plan of care. F/c draining to gravity, will remove today per order. Side rails upx2, bed low and locked, call light within reach.
[2020-03-25 08:08] LABS: % IRON SATURATION 16 % (15-50); IRON 13 ug/dL (50-175); TOTAL IRON BINDING CAPACITY 83 ug/dL (250-450)
[2020-03-25 08:15] LABS: CREATINE KINASE 300 U/L (26-308); GAMMA GLUTAMYL TRANSPEPTIDASE 86 U/L (5-85); PHOSPHORUS 3.8 MG/DL (2.5-4.9)
[2020-03-25] MEDS: Pantoprazole Inj IVP SCH (08:17)
[2020-03-25] MEDS ORDERED: Enoxaparin 40mg Inj SUBQ SCH (09:00)
--- NOTE | 2020-03-25 09:04 | General Progress Note ---
Subjective ROS Limited/Unobtainable: Yes Allergies: Coded Allergies: No Known Allergies (Unverified , 06/23/18) Objective Last 24 Hour Vital Signs Date Time Temp Pulse Resp B/P (MAP) Pulse Ox O2 Delivery O2 Flow Rate FiO2 03/25/20 08:00 98.9 102 20 140/90 (107) 95 03/25/20 07:30 84 22 98 03/25/20 00:00 99.1 104 18 130/83 (99) 96 03/24/20 21:00 Nasal Cannula 3.0 03/24/20 20:00 98.1 98 18 131/84 (100) 96 03/24/20 17:45 97.9 102 18 120/82 (95) 98 03/24/20 16:45 98.0 100 16 121/83 (96) 98 03/24/20 16:15 97.9 97 16 122/82 (95) 97 03/24/20 15:45 98.0 96 16 126/85 (99) 97 03/24/20 15:15 98.4 100 18 127/86 (100) 97 03/24/20 15:00 98.4 101 20 127/88 (101) 98 03/24/20 14:45 98.1 98 20 127/89 (102) 99 03/24/20 14:30 98.1 03/24/20 14:30 98.1 03/24/20 14:25 98.0 87 20 122/77 (92) 99 03/24/20 13:55 97.3 97 20 132/86 99 Nasal Cannula 3 03/24/20 13:45 95 22 134/84 100 Nasal Cannula 3 03/24/20 13:30 96 13 131/83 100 Nasal Cannula 3 03/24/20 13:18 99 20 131/80 100 Nasal Cannula 3 03/24/20 13:08 107 15 143/75 100 Simple Mask 6 03/24/20 13:04 Nasal Cannula 2.0 03/24/20 13:00 103 15 140/88 100 Simple Mask 6 03/24/20 12:50 101 16 128/76 96 Simple Mask 6 101 03/24/20 12:40 105 20 132/72 96 Simple Mask 6 105 03/24/20 12:31 102 22 98 03/24/20 12:30 104 18 127/74 96 Simple Mask 6 104 03/24/20 12:22 99.3 92 20 133/72 96 Simple Mask 6 92 03/24/20 10:18 98.8 105 19 124/68 98 Room Air 03/24/20 10:07 98.8 105 19 124/68 98 Room Air 03/24/20 09:33 98.8 Intake and Output 03/24/20 03/25/20 19:00 07:00 Intake Total 450 ml 1100 ml Output Total 570 ml 570 ml Balance -120 ml 530 ml Intake IV Total 450 ml 1100 ml Output Urine Total 400 ml 450 ml Gastric Drainage Total 100 ml 100 ml Drainage Total 45 ml 20 ml Estimated Blood Loss 25 ml # Voids 1 Laboratory Tests 03/24/20 15:40: Lactic Acid Level 2.10 03/24/20 15:55: Urine Opiates Screen PositiveH, Urine Barbiturates Screen Negative, Phencyclidine (PCP) Screen Negative, Urine Amphetamines Screen Negative, Urine Benzodiazepines Screen PositiveH, Urine Cocaine Screen Negative, Urine Marijuana (THC) Screen Negative 03/24/20 18:46: POC Whole Blood Glucose 122H 03/24/20 23:51: POC Whole Blood Glucose 127H 03/25/20 05:05: White Blood Count 21.5H, Red Blood Count 4.48L, Hemoglobin 15.0, Hematocrit 45.8, Mean Corpuscular Volume 102H, Mean Corpuscular Hemoglobin 33.4H, Mean Corpuscular Hemoglobin Concent 32.7, Red Cell Distribution Width 14.2, Platelet Count 427, Mean Platelet Volume 6.1L, Neutrophils (%) (Auto) , Lymphocytes (%) (Auto) , Monocytes (%) (Auto) , Eosinophils (%) (Auto) , Basophils (%) (Auto) , Neutrophils % (Manual) [Pending], Lymphocytes % (Manual) [Pending], Platelet Estimate [Pending], Platelet Morphology [Pending], Sodium Level [Pending], Potassium Level [Pending], Chloride Level [Pending], Carbon Dioxide Level [Pending], Blood Urea Nitrogen [Pending], Creatinine [Pending], Estimat Glomerul ar Filtration Rate [Pending], Glucose Level [Pending], Hemoglobin A1c 7.1H, Lactic Acid Level [Pending], Uric Acid 5.6, Calcium Level [Pending], Phosphorus Level 3.8, Magnesium Level 1.7L, Iron Level 13L, Total Iron Binding Capacity 83L , Percent Iron Saturation 16, Unsaturated Iron Binding 70L, Ferritin [Pending], Total Bilirubin [Pending], Gamma Glutamyl Transpeptidase 86H, Aspartate Amino Transf (AST/SGOT) [Pending], Alanine Aminotransferase (ALT/SGPT) [Pending], Alkaline Phosphatase [Pending], Total Creatine Kinase 300, C-Reactive Protein, Quantitative [Pending], Pro-B-Type Natriuretic Peptide 1282H, Total Protein [Pending], Albumin [Pending], Globulin [Pending], Triglycerides Level [Pending], Cholesterol Level [Pending], LDL Cholesterol [Pending], HDL Cholesterol [Pending], Cholesterol/HDL Ratio [Pending], Lipase 392, Vitamin B12 Level 974, Folate 3.3L, Thyroid Stimulating Hormone (TSH) [Pending] 03/25/20 06:08: POC Whole Blood Glucose 126H Height (Feet): 5 Height (Inches): 7.00 Weight (Pounds): 180 General Appearance: no apparent distress EENT: normal ENT inspection Neck: supple Cardiovascular: normal rate Respiratory/Chest: decreased breath sounds Abdomen: other - post surgical Extremities: non-tender Assessment/Plan Problem List: (1) Hypokalemia ICD Codes: E87.6 - Hypokalemia SNOMED: 79649973 (2) Alcohol abuse ICD Codes: F10.10 - Alcohol abuse, uncomplicated SNOMED: 89853000 (3) Perforated duodenal ulcer ICD Codes: K26.5 - Chronic or unspecified duodenal ulcer with perforation SNOMED: 51033829 (4) Pancreatitis, alcoholic, acute ICD Codes: K85.20 - Alcohol induced acute pancreatitis without necrosis or infection SNOMED: 955501915 Qualifiers: Qualified Codes: K85.20 - Alcohol induced acute pancreatitis without necrosis or infection Assessment/Plan: s/p surg repeat labs correct electrolytes start creon when patient on diet Shravan Marques MD Mar 25, 2020 09:04
[2020-03-25 09:05] LABS: ALANINE AMINOTRANSFERASE 23 U/L (12-78); ALBUMIN 2.2 G/DL (3.4-5.0); ALBUMIN/GLOBULIN RATIO 0.6 (1.0-2.7); ALKALINE PHOSPHATASE 61 U/L (46-116); ANION GAP 11 mmol/L (5-15); ASPARTATE AMINO TRANSFERASE 30 U/L (15-37); BILIRUBIN,TOTAL 0.9 MG/DL (0.2-1.0); BLOOD UREA NITROGEN 30 mg/dL (7-18); CALCIUM 7.8 MG/DL (8.5-10.1); CARBON DIOXIDE 32 MMOL/L (21-32); CHLORIDE 94 MMOL/L (98-107); CHOLESTEROL 87 MG/DL (< 200); CREATININE 1.3 MG/DL (0.55-1.30); FERRITIN 597 NG/ML (8-388); HDL CHOLESTEROL 12 MG/DL (40-60); SODIUM 136 MMOL/L (136-145); TRIGLYCERIDES 155 MG/DL (30-150)
[2020-03-25 09:09] LABS: POTASSIUM 2.7 MMOL/L (3.5-5.1)
--- NOTE | 2020-03-25 09:20 | NUR ---
NURSE NOTES: Notified of critical low potassium 2.7 from lab at 0909. Notified Dr. Forbes, received order to replace potassium with 20mEq IVPB x1, order read back and entered.
--- NOTE | 2020-03-25 09:53 | General Progress Note ---
Subjective Constitutional: Reports: weakness Allergies: Coded Allergies: No Known Allergies (Unverified , 06/23/18) All Systems: reviewed and negative except above Subjective o2nc ng Objective Last 24 Hour Vital Signs Date Time Temp Pulse Resp B/P (MAP) Pulse Ox O2 Delivery O2 Flow Rate FiO2 03/25/20 08:00 98.9 102 20 140/90 (107) 95 03/25/20 07:30 84 22 98 03/25/20 00:00 99.1 104 18 130/83 (99) 96 03/24/20 21:00 Nasal Cannula 3.0 03/24/20 20:00 98.1 98 18 131/84 (100) 96 03/24/20 17:45 97.9 102 18 120/82 (95) 98 03/24/20 16:45 98.0 100 16 121/83 (96) 98 03/24/20 16:15 97.9 97 16 122/82 (95) 97 03/24/20 15:45 98.0 96 16 126/85 (99) 97 03/24/20 15:15 98.4 100 18 127/86 (100) 97 03/24/20 15:00 98.4 101 20 127/88 (101) 98 03/24/20 14:45 98.1 98 20 127/89 (102) 99 03/24/20 14:30 98.1 03/24/20 14:30 98.1 03/24/20 14:25 98.0 87 20 122/77 (92) 99 03/24/20 13:55 97.3 97 20 132/86 99 Nasal Cannula 3 03/24/20 13:45 95 22 134/84 100 Nasal Cannula 3 03/24/20 13:30 96 13 131/83 100 Nasal Cannula 3 03/24/20 13:18 99 20 131/80 100 Nasal Cannula 3 03/24/20 13:08 107 15 143/75 100 Simple Mask 6 03/24/20 13:04 Nasal Cannula 2.0 03/24/20 13:00 103 15 140/88 100 Simple Mask 6 03/24/20 12:50 101 16 128/76 96 Simple Mask 6 101 03/24/20 12:40 105 20 132/72 96 Simple Mask 6 105 03/24/20 12:31 102 22 98 03/24/20 12:30 104 18 127/74 96 Simple Mask 6 104 03/24/20 12:22 99.3 92 20 133/72 96 Simple Mask 6 92 03/24/20 10:18 98.8 105 19 124/68 98 Room Air 03/24/20 10:07 98.8 105 19 124/68 98 Room Air Intake and Output 03/24/20 03/25/20 19:00 07:00 Intake Total 450 ml 1100 ml Output Total 570 ml 570 ml Balance -120 ml 530 ml Intake IV Total 450 ml 1100 ml Output Urine Total 400 ml 450 ml Gastric Drainage Total 100 ml 100 ml Drainage Total 45 ml 20 ml Estimated Blood Loss 25 ml # Voids 1 Laboratory Tests 03/24/20 15:40: Lactic Acid Level 2.10 03/24/20 15:55: Urine Opiates Screen PositiveH, Urine Barbiturates Screen Negative, Phencyclidine (PCP) Screen Negative, Urine Amphetamines Screen Negative, Urine Benzodiazepines Screen PositiveH, Urine Cocaine Screen Negative, Urine Marijuana (THC) Screen Negative 03/24/20 18:46: POC Whole Blood Glucose 122H 03/24/20 23:51: POC Whole Blood Glucose 127H 03/25/20 05:05: White Blood Count 21.5H, Red Blood Count 4.48L, Hemoglobin 15.0, Hematocrit 45.8, Mean Corpuscular Volume 102H, Mean Corpuscular Hemoglobin 33.4H, Mean Corpuscular Hemoglobin Concent 32.7, Red Cell Distribution Width 14.2, Platelet Count 427, Mean Platelet Volume 6.1L, Neutrophils (%) (Auto) , Lymphocytes (%) (Auto) , Monocytes (%) (Auto) , Eosinophils (%) (Auto) , Basophils (%) (Auto) , Neutrophils % (Manual) [Pending], Lymphocytes % (Manual) [Pending], Platelet Estimate [Pending], Platelet Morphology [Pending], Sodium Level 136, Potassium Level 2.7*L, Chloride Level 94L, Carbon Dioxide Level 32, Anion Gap 11, Blood Urea Nitrogen 30H, Creatinine 1.3, Estimat Glomerular Filtration Rate > 60, Glucose Level 136#H, Hemoglobin A1c 7.1H, Lactic Acid Level 2.00, Uric Acid 5.6, Calcium Level 7.8L, Phosphorus Level 3.8, Magnesium Level 1.7L, Iron Level 13L, Total Iron Binding Capacity 83L, Percent Iron Saturation 16, Unsaturated Iron Binding 70L, Ferritin 597H, Total Bilirubin 0.9, Gamma Glutamyl Transpeptidase 86H, Aspartate Amino Transf (AST/SGOT) 30, Alanine Aminotransferase (ALT/SGPT) 23, Alkaline Phosphatase 61, Total Creatine Kinase 300, C-Reactive Protein, Quantitative [Pending], Pro-B-Type Natriuretic Peptide 1282H, Total Protein 5.8L , Albumin 2.2L, Globulin 3.6, Albumin/Globulin Ratio 0.6L, Triglycerides Level 155H, Cholesterol Level 87, LDL Cholesterol 38, HDL Cholesterol 12L, Cholesterol/HDL Ratio 7.3H, Lipase 392, Vitamin B12 Level 974, Folate 3.3L, Thyroid Stimulating Hormone (TSH) 0.739 03/25/20 06:08: POC Whole Blood Glucose 126H Height (Feet): 5 Height (Inches): 7.00 Weight (Pounds): 180 EENT: normal ENT inspection Neck: normal alignment Cardiovascular: normal peripheral pulses, normal rate, regular rhythm Respiratory/Chest: normal breath sounds Abdomen: soft, hypoactive bowel sounds Extremities: normal inspection Edema: no edema noted Arm (L), no edema noted Arm (R), no edema noted Leg (L), no edema noted Leg (R), no edema noted Pedal (L), no edema noted Pedal (R), no edema noted Generalized Neurologic: motor weakness Skin: normal pigmentation, warm/dry Assessment/Plan Problem List: (1) Renal failure ICD Codes: N19 - Unspecified kidney failure SNOMED: 03843796 (2) Perforated duodenal ulcer ICD Codes: K26.5 - Chronic or unspecified duodenal ulcer with perforation SNOMED: 91014385 (3) Pancreatitis, alcoholic, acute ICD Codes: K85.20 - Alcohol induced acute pancreatitis without necrosis or infection SNOMED: 738933901 Qualifiers: Qualified Codes: K85.20 - Alcohol induced acute pancreatitis without necrosis or infection Status: unchanged Assessment/Plan: npo ivf pain control gi sx f/u cbc bmp am Nacho Forbes DO Mar 25, 2020 09:53
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
[2020-03-25 12:00] VITALS: BP 138/89
--- NOTE | 2020-03-25 12:00 | NUR ---
NURSE NOTES: Patient still requesting water, educated patient of NPO status. Notified Dr. Staton of patient's request and stated patient may have small amount of ice chips. Order read back and entered.
--- NOTE | 2020-03-25 12:02 | General Surgery Progress Note ---
General Surgery-Progress Note Subjective Procedure Performed ex lap lysis of adhesions & partial omentectomy Symptoms: improved Objective Last 24 Hour Vital Signs Date Time Temp Pulse Resp B/P (MAP) Pulse Ox O2 Delivery O2 Flow Rate FiO2 03/25/20 08:00 98.9 102 20 140/90 (107) 95 03/25/20 07:30 84 22 98 03/25/20 00:00 99.1 104 18 130/83 (99) 96 03/24/20 21:00 Nasal Cannula 3.0 03/24/20 20:00 98.1 98 18 131/84 (100) 96 03/24/20 17:45 97.9 102 18 120/82 (95) 98 03/24/20 16:45 98.0 100 16 121/83 (96) 98 03/24/20 16:15 97.9 97 16 122/82 (95) 97 03/24/20 15:45 98.0 96 16 126/85 (99) 97 03/24/20 15:15 98.4 100 18 127/86 (100) 97 03/24/20 15:00 98.4 101 20 127/88 (101) 98 03/24/20 14:45 98.1 98 20 127/89 (102) 99 03/24/20 14:30 98.1 03/24/20 14:30 98.1 03/24/20 14:25 98.0 87 20 122/77 (92) 99 03/24/20 13:55 97.3 97 20 132/86 99 Nasal Cannula 3 03/24/20 13:45 95 22 134/84 100 Nasal Cannula 3 03/24/20 13:30 96 13 131/83 100 Nasal Cannula 3 03/24/20 13:18 99 20 131/80 100 Nasal Cannula 3 03/24/20 13:08 107 15 143/75 100 Simple Mask 6 03/24/20 13:04 Nasal Cannula 2.0 03/24/20 13:00 103 15 140/88 100 Simple Mask 6 03/24/20 12:50 101 16 128/76 96 Simple Mask 6 101 03/24/20 12:40 105 20 132/72 96 Simple Mask 6 105 03/24/20 12:31 102 22 98 03/24/20 12:30 104 18 127/74 96 Simple Mask 6 104 1/5/21 12:22 99.3 92 20 133/72 96 Simple Mask 6 92 I&O Intake and Output 03/24/20 03/25/20 19:00 07:00 Intake Total 450 ml 1100 ml Output Total 570 ml 570 ml Balance -120 ml 530 ml Intake IV Total 450 ml 1100 ml Output Urine Total 400 ml 450 ml Gastric Drainage Total 100 ml 100 ml Drainage Total 45 ml 20 ml Estimated Blood Loss 25 ml # Voids 1 Dressing: dry Drains: david Respiratory: clear Abdomen: soft, flat, absent bowel sounds Extremities: no edema, no tenderness Laboratory Tests Test 03/24/20 15:40 03/24/20 15:55 03/24/20 18:46 03/24/20 23:51 Lactic Acid Level 2.10 mmol/L (0.66-2.22) Urine Opiates Screen Positive (NEGATIVE) H Urine Barbiturates Screen Negative (NEGATIVE) Phencyclidine (PCP) Screen Negative (NEGATIVE) Urine Amphetamines Screen Negative (NEGATIVE) Urine Benzodiazepines Screen Positive (NEGATIVE) H Urine Cocaine Screen Negative (NEGATIVE) Urine Marijuana (THC) Screen Negative (NEGATIVE) POC Whole Blood Glucose 122 MG/DL (74-106) H 127 MG/DL (74-106) H Test 03/25/20 05:05 03/25/20 06:08 White Blood Count 21.5 K/UL (4.8-10.8) H Red Blood Count 4.48 M/UL (4.70-6.10) L Hemoglobin 15.0 G/DL (14.2-18.0) Hematocrit 45.8 % (42.0-52.0) Mean Corpuscular Volume 102 FL (80-99) H Mean Corpuscular Hemoglobin 33.4 PG (27.0-31.0) H Mean Corpuscular Hemoglobin Concent 32.7 G/DL (32.0-36.0) Red Cell Distribution Width 14.2 % (11.6-14.8) Platelet Count 427 K/UL (150-450) Mean Platelet Volume 6.1 FL (6.5-10.1) L Neutrophils (%) (Auto) % (45.0-75.0) Lymphocytes (%) (Auto) % (20.0-45.0) Monocytes (%) (Auto) % (1.0-10.0) Eosinophils (%) (Auto) % (0.0-3.0) Basophils (%) (Auto) % (0.0-2.0) Differential Total Cells Counted 100 Neutrophils % (Manual) 72 % (45-75) Lymphocytes % (Manual) 9 % (20-45) L Monocytes % (Manual) 4 % (1-10) Eosinophils % (Manual) 0 % (0-3) Basophils % (Manual) 0 % (0-2) Band Neutrophils 15 % (0-8) H Platelet Estimate Adequate Platelet Morphology Normal Macrocytosis 1+ Sodium Level 136 MMOL/L (136-145) Potassium Level 2.7 MMOL/L (3.5-5.1) *L Chloride Level 94 MMOL/L (98-107) L Carbon Dioxide Level 32 MMOL/L (21-32) Anion Gap 11 mmol/L (5-15) Blood Urea Nitrogen 30 mg/dL (7-18) H Creatinine 1.3 MG/DL (0.55-1.30) Estimat Glomerular Filtration Rate > 60 mL/min (>60) Glucose Level 136 MG/DL (74-106) #H Hemoglobin A1c 7.1 % (4.3-6.0) H Lactic Acid Level 2.00 mmol/L (0.4-2.0) Uric Acid 5.6 MG/DL (2.6-7.2) Calcium Level 7.8 MG/DL (8.5-10.1) L Phosphorus Level 3.8 MG/DL (2.5-4.9) Magnesium Level 1.7 MG/DL (1.8-2.4) L Iron Level 13 ug/dL (50-175) L Total Iron Binding Capacity 83 ug/dL (250-450) L Percent Iron Saturation 16 % (15-50) Unsaturated Iron Binding 70 ug/dL (112-346) L Ferritin 597 NG/ML (8-388) H Total Bilirubin 0.9 MG/DL (0.2-1.0) Gamma Glutamyl Transpeptidase 86 U/L (5-85) H Aspartate Amino Transf (AST/SGOT) 30 U/L (15-37) Alanine Aminotransferase (ALT/SGPT) 23 U/L (12-78) Alkaline Phosphatase 61 U/L (46-116) Total Creatine Kinase 300 U/L (26-308) C-Reactive Protein, Quantitative Pending Pro-B-Type Natriuretic Peptide 1282 pg/mL (0-125) H Total Protein 5.8 G/DL (6.4-8.2) L Albumin 2.2 G/DL (3.4-5.0) L Globulin 3.6 g/dL Albumin/Globulin Ratio 0.6 (1.0-2.7) L Triglycerides Level 155 MG/DL (30-150) H Cholesterol Level 87 MG/DL (< 200) LDL Cholesterol 38 mg/dL (<100) HDL Cholesterol 12 MG/DL (40-60) L Cholesterol/HDL Ratio 7.3 (3.3-4.4) H Lipase 392 U/L (73-393) Vitamin B12 Level 974 PG/ML (193-986) Folate 3.3 NG/ML (8.6-58.9) L Thyroid Stimulating Hormone (TSH) 0.739 uiU/mL (0.358-3.740) POC Whole Blood Glucose 126 MG/DL (74-106) H Assessment Additional Comments S/P Ex Lap Plan Additional Comments continue as before Desiree Staton MD Mar 25, 2020 12:02
--- NOTE | 2020-03-25 12:27 | Nephrology Progress Note ---
Assessment/Plan Problem List: (1) MANDI (acute kidney injury) (2) Hypokalemia (3) Alcohol abuse (4) Pancreatitis, alcoholic, acute (5) Perforated duodenal ulcer Assessment Acute renal failure Dehydration Electrolyte imbalance Perforated duodenal ulcer Elevated lipase Plan March 25: Labs reviewed. Abnormal electrolytes addressed. IV changed to D5 normal saline with potassium supplement. Continue to monitor electrolytes. Continue postop care. Previously: Postop IV fluid IV Protonix Keep the blood sugar in check Monitor electrolytes and renal parameters Keep the blood pressure in check Monitor lipase Urine for tox screen Subjective ROS Limited/Unobtainable: No Constitutional: Reports: malaise Objective Objective Last 24 Hour Vital Signs Date Time Temp Pulse Resp B/P (MAP) Pulse Ox O2 Delivery O2 Flow Rate FiO2 03/25/20 12:00 99.0 103 18 138/89 (105) 94 03/25/20 08:00 98.9 102 20 140/90 (107) 95 03/25/20 07:30 84 22 98 03/25/20 00:00 99.1 104 18 130/83 (99) 96 03/24/20 21:00 Nasal Cannula 3.0 03/24/20 20:00 98.1 98 18 131/84 (100) 96 03/24/20 17:45 97.9 102 18 120/82 (95) 98 03/24/20 16:45 98.0 100 16 121/83 (96) 98 03/24/20 16:15 97.9 97 16 122/82 (95) 97 03/24/20 15:45 98.0 96 16 126/85 (99) 97 03/24/20 15:15 98.4 100 18 127/86 (100) 97 03/24/20 15:00 98.4 101 20 127/88 (101) 98 03/24/20 14:45 98.1 98 20 127/89 (102) 99 03/24/20 14:30 98.1 03/24/20 14:30 98.1 03/24/20 14:25 98.0 87 20 122/77 (92) 99 03/24/20 13:55 97.3 97 20 132/86 99 Nasal Cannula 3 03/24/20 13:45 95 22 134/84 100 Nasal Cannula 3 03/24/20 13:30 96 13 131/83 100 Nasal Cannula 3 03/24/20 13:18 99 20 131/80 100 Nasal Cannula 3 03/24/20 13:08 107 15 143/75 100 Simple Mask 6 03/24/20 13:04 Nasal Cannula 2.0 03/24/20 13:00 103 15 140/88 100 Simple Mask 6 03/24/20 12:50 101 16 128/76 96 Simple Mask 6 101 03/24/20 12:40 105 20 132/72 96 Simple Mask 6 105 03/24/20 12:31 102 22 98 03/24/20 12:30 104 18 127/74 96 Simple Mask 6 104 03/24/20 12:22 99.3 92 20 133/72 96 Simple Mask 6 92 Intake and Output 03/24/20 03/25/20 19:00 07:00 Intake Total 450 ml 1100 ml Output Total 570 ml 570 ml Balance -120 ml 530 ml Intake IV Total 450 ml 1100 ml Output Urine Total 400 ml 450 ml Gastric Drainage Total 100 ml 100 ml Drainage Total 45 ml 20 ml Estimated Blood Loss 25 ml # Voids 1 Current Medications Medications (Trade) Dose Ordered Sig/Paulo Route PRN Reason Start Time Stop Time Status Last Admin Dose Admin Acetaminophen (Tylenol) 650 mg Q4H PRN RECTAL FEVER 03/24/20 12:15 04/23/20 12:14 Dextrose (Dextrose 50%) 25 ml Q30M PRN IV Hypoglycemia 03/24/20 15:45 06/22/20 15:44 Dextrose (Dextrose 50%) 50 ml Q30M PRN IV Hypoglycemia 03/24/20 15:45 06/22/20 15:44 Enoxaparin Sodium (Lovenox) 40 mg DAILY SUBQ 03/25/20 09:00 06/23/20 08:59 03/25/20 08:19 Hydromorphone HCl (Dilaudid) 0.5 mg Q3H PRN IVP Pain Score 1-3 03/24/20 12:15 03/31/20 12:14 03/24/20 14:00 Hydromorphone HCl (Dilaudid) 1 mg Q3H PRN IVP pain score 4-6 03/24/20 12:15 03/31/20 12:14 Hydromorphone HCl (Dilaudid) 2 mg Q3H PRN IVP pain score 7-10 03/24/20 12:15 03/31/20 12:14 1/6/21 08:18 Insulin Aspart (NovoLOG) Q6H SUBQ 03/24/20 18:00 06/22/20 17:59 Magnesium Sulfate 100 ml @ 100 mls/hr Q1H IVPB 03/25/20 14:00 03/25/20 15:59 Metoclopramide HCl (Reglan) 10 mg Q6H PRN IVP Nausea & Vomiting 03/24/20 12:15 04/23/20 12:14 Ondansetron HCl (Zofran) 4 mg Q6H PRN IVP Nausea & Vomiting 03/24/20 12:15 04/23/20 12:14 03/25/20 01:50 Pantoprazole (Protonix) 40 mg EVERY 12 HOURS IVP 03/24/20 21:00 04/23/20 20:59 03/25/20 08:17 Piperacillin Sod/ Tazobactam Sod 3.375 gm/Sodium Chloride 110 ml @ 27.5 mls/hr EVERY 8 HOURS IVPB 03/24/20 22:00 03/31/20 21:59 03/25/20 06:11 Potassium Chloride 100 ml @ 100 mls/hr Q1H IVPB 03/25/20 10:00 03/25/20 13:59 03/25/20 12:11 Potassium Chloride 100 ml @ 100 mls/hr Q1H IVPB 03/25/20 16:00 03/25/20 17:59 Sodium Chloride 1,000 ml @ 100 mls/hr Q10H IV 03/24/20 15:15 04/23/20 15:14 03/25/20 11:19 Laboratory Tests 03/24/20 15:40: Lactic Acid Level 2.10 03/24/20 15:55: Urine Opiates Screen PositiveH, Urine Barbiturates Screen Negative, Phencyclidine (PCP) Screen Negative, Urine Amphetamines Screen Negative, Urine Benzodiazepines Screen PositiveH, Urine Cocaine Screen Negative, Urine Marijuana (THC) Screen Negative 03/24/20 18:46: POC Whole Blood Glucose 122H 03/24/20 23:51: POC Whole Blood Glucose 127H 03/25/20 05:05: White Blood Count 21.5H, Red Blood Count 4.48L, Hemoglobin 15.0, Hematocrit 45.8, Mean Corpuscular Volume 102H, Mean Corpuscular Hemoglobin 33.4H, Mean Corpuscular Hemoglobin Concent 32.7, Red Cell Distribution Width 14.2, Platelet Count 427, Mean Platelet Volume 6.1L, Neutrophils (%) (Auto) , Lymphocytes (%) (Auto) , Monocytes (%) (Auto) , Eosinophils (%) (Auto) , Basophils (%) (Auto) , Differential Total Cells Counted 100, Neutrophils % (Manual) 72, Lymphocytes % (Manual) 9L, Monocytes % (Manual) 4, Eosinophils % (Manual) 0, Basophils % (Manual) 0, Band Neutrophils 15H, Platelet Estimate Adequate, Platelet Morphology Normal, Macrocytosis 1+, Sodium Level 136, Potassium Level 2.7*L, Chloride Level 94L, Carbon Dioxide Level 32, Anion Gap 11, Blood Urea Nitrogen 30H, Creatinine 1.3, Estimat Glomerular Filtration Rate > 60, Glucose Level 136#H, Hemoglobin A1c 7.1H, Lactic Acid Level 2.00, Uric Acid 5.6, Calcium Level 7.8L, Phosphorus Level 3.8, Magnesium Level 1.7L, Iron Level 13L, Total Iron Binding Capacity 83L, Percent Iron Saturation 16, Unsaturated Iron Binding 70L, Ferritin 597H, Total Bilirubin 0.9, Gamma Glutamyl Transpeptidase 86H, Aspartate Amino Transf (AST/SGOT) 30, Alanine Aminotransferase (ALT/SGPT) 23, Alkaline Phosphatase 61, Total Creatine Kinase 300, C-Reactive Protein, Quantitative [Pending], Pro-B-Type Natriuretic Peptide 1282H, Total Protein 5.8L, Albumin 2.2L, Globulin 3.6, Albumin/Globulin Ratio 0.6L, Triglycerides Level 155H, Cholesterol Level 87, LDL Cholesterol 38, HDL Cholesterol 12L, Cholesterol/HDL Ratio 7.3H, Lipase 392, Vitamin B12 Level 974, Folate 3.3L, Thyroid Stimulating Hormone (TSH) 0.739 03/25/20 06:08: POC Whole Blood Glucose 126H Height (Feet): 5 Height (Inches): 7.00 Weight (Pounds): 180 General Appearance: no apparent distress Cardiovascular: tachycardia Respiratory/Chest: decreased breath sounds Abdomen: absent bowel sounds Randy Monge MD Mar 25, 2020 12:27
--- NOTE | 2020-03-25 12:53 | NUR ---
CASE MANAGEMENT:INITIAL REVIEW 40 YR OLD MALE PRESENTED TO ED FROM HOME CC;ABDOMINAL PAIN SI;PANCREATITIS. PERFORATED DUODENAL ULCER. TO SURGERY FOR EX LAP AND LYSIS OF ADHESIONS AND PARTIAL OMENTECTOMY 99.3 118 20 124/68 94% ON RA WBC 29.8 NA 130 K+ 2.8 BUN 23 CR 2.0 GLU 249 CA 7.7 T-BILI 1.1 D-BILI 0.4 LIPASE 900 PT 12.7 INR 1.2 URINE TOX + OPIATES, BENZODIAZEPINES IS;ZOFRAN IV MORPHINE IV IVF NS BOLUS ZOSYN IV K-DUR PO ADMITTED TO MED SURG FOR POST OP CARE MED SURG STATUS DCP;FROM HOME
[2020-03-25] MEDS ORDERED: D5NS w/KCl 40mEq 1000ml 1,000 ML IV SCH (13:00)
[2020-03-25 13:11] LABS: APPEARANCE,URINE CLEAR; BILIRUBIN, URINE NEGATIVE (NEGATIVE); GLUCOSE, URINE (UA) NEGATIVE (NEGATIVE); KETONES,URINE 3+ (NEGATIVE); LEUKOCYTE ESTERASE ,URINE NEGATIVE (NEGATIVE); NITRITE,URINE NEGATIVE (NEGATIVE); PH,URINE 8 (4.5-8.0); PROTEIN,URINE 2+ (NEGATIVE); UROBILINOGEN,URINE NORMAL MG/DL (0.0-1.0)
[2020-03-25 13:32] LABS: COLOR,URINE PALE YELLOW
--- NOTE | 2020-03-25 13:33 | NUR ---
NURSE NOTES: Patient is requesting to leave AMA. Patient educated that he may have worsening of condition or if he leaves the hospital AMA. Called Dr. Staton and notified MD that patient wants to leave AMA, MD ordered to remove NG tube and renteria catheter and allow patient to leave AMA. MD is aware that patient has a ROLANDO drain and nursing staff cannot remove ROLANDO. MD aware that patient will leave AMA with ROLANDO drain in place. Patient stated "I can take care of the drain, I watched the nurse do it last night." Patient educated and encouraged again not to leave AMA due to possibility of worsening of condition and but patient is insisting on leaving AMA.
--- NOTE | 2020-03-25 13:50 | NUR ---
NURSE NOTES: Patient left AMA. NG tube and renteria catheter removed, IV removed intact. ROLANDO drain in place and Dr. Staton is aware patient left with ROLANDO drain due to nursing staff not able to remove drain. Patient was educated by myself and charge nurse Ariadna of the risks of leaving AMA including worsening of condition and , patient verbalized understanding and stated "I don't care. I'm leaving. I'll go see another doctor." Patient ambulated off unit steadily.
--- NOTE | 2020-03-26 15:48 | Discharge Summary ---
Discharge Summary Discharge Summary _ DATE OF ADMISSION: 03/24/2020 DATE OF DISCHARGE: 03/25/2020 Patient left AGAINST MEDICAL ADVICE REASON FOR ADMISSION: 40 years old male with no significant past medical history except sciatica , presented for abdominal pain since last night. CT scan of the abdomen and pelvis at that time revealed perforated duodenum. Hepatic steatosis. Calcification throughout the pancreas , consistent with sequela of previous pancreatitis. Patient left AMA since he had to take care of his father. Patient returned later due to the pain, reported as nonradiating, dull, severe, 10 out of 10 on a scale 1-10. He denied fever and chills. He denied chest pain or shortness of breath. Laboratory work-up showed WBC 29.8 , stable hemoglobin and hematocrit. Sodium 130, potassium 2.8 BUN 23, creatinine 2.0 Lipase 900 Stable AST and ALT Urinalysis revealed no evidence of urinary tract infection. Patient received empiric antibiotic. Surgeon evaluated patient, and subsequently patient was taken to operating room in a serious condition. CONSULTANTS: Surgery Dr. Staton ID specialist Dr. Holt GI specialist Dr Marques X Ray Service Technician Dr. Monge HOSPITAL COURSE: Patient undergone exploratory laparotomy, lysis of adhesions and partial omentectomy due to perforated duodenal ulcer. Postoperatively patient was kept n.p.o. Patient was provided with IV fluids. Pain management was addressed. Antiemetic provided as needed . GI prophylaxis provided . Patient was on empiric antibiotic. Renal parameters and electrolytes were closely monitored. Hypokalemia was corrected. DVT prophylaxis with Lovenox continued. Antiemetic were on board as needed. NG tube to suction continued. Intake and and output of NG tube and ROLANDO drain was closely monitored. Abdominal fluid culture was negative. HIV test was nonreactive , hepatitis panel was negative. Patient decided to leave AGAINST MEDICAL ADVICE. The risks and consequences of signing AGAINST MEDICAL ADVICE were discussed with patient in detail. Patient verbalized understanding, nevertheless signed AMA form and left. FINAL DIAGNOSES: Perforated duodenal ulcer Status post exploratory laparotomy, lysis of adhesion and partial omentectomy Hypokalemia Alcohol abuse Acute alcoholic pancreatitis Acute renal failure Electrolyte imbalance Dehydration Possible intra-abdominal infection I have been assigned to dictate discharge summary for this account. I was not involved in the patient's management. Noemy Hammond NP Mar 26, 2020 15:48
--- NOTE | 2020-03-27 11:06 | NUR ---
INSURANCE CLINICALS/DC SUMMARY FAXED TO [facility]AL[facility]ODY PH#[phone] FAX#[phone]
== END 2020-03-25 13:50 | disposition left against medical advice (07) | DRG 224 ==
LOC: EMR 08:00 → EDBEDREQSVC 09:55 → EDBEDREQ 09:55 → EMR 10:20 → 3E 13:28
PROC: 0DNU0ZZ Release Omentum, Open Approach (ICD-10-PCS; 2020-03-24)
PROC: 0DBU0ZZ Excision of Omentum, Open Approach (ICD-10-PCS; principal; 2020-03-24 10:30)
DX: K26.5 Chronic or unspecified duodenal ulcer with perforation (principal); K85.20 Alcohol induced acute pancreatitis without necrosis or infection; N17.9 Acute kidney failure, unspecified; F17.200 Nicotine dependence, unspecified, uncomplicated; E87.6 Hypokalemia; F10.10 Alcohol abuse, uncomplicated; E86.0 Dehydration; E87.8 Other disorders of electrolyte and fluid balance, not elsewhere classified; M54.30 Sciatica, unspecified side; Z90.81 Acquired absence of spleen; K66.0 Peritoneal adhesions (postprocedural) (postinfection); B99.8 Other infectious disease
CPT/HCPCS: 36415; 80053; 80061; 80307; 81001; 82248; 82550; 82607; 82728; 82746; 82962; 82977; 83036; 83540; 83550; 83605; 83690; 83735; 83880; 84100; 84443; 84550; 85007; 85025; 85610; 85730; 86140; 86703; 86705; 86709; 86803; 86850; 86900; 86901; 87040; 87070; 87075; 87205; 87340; 94003; 94150; 96361; 96365; 96375; 99291; J1815; J2180; J2250; J2405; J2710; J7030; J8499

== ENCOUNTER 2020-03-25 17:01 | Emergency (ER) | payer MEDICAID ==
[~2020-03-25] VITALS: Ht 170.2 cm; Wt 81.6 kg
[2020-03-25 17:10] VITALS: BP 138/81
== END 2020-03-25 18:00 | disposition left against medical advice (07) ==
LOC: EMR 17:40
DX: K26.5 Chronic or unspecified duodenal ulcer with perforation (principal); Z53.21 Procedure and treatment not carried out due to patient leaving prior to being seen by health care provider